=== PATIENT | male | born 1955 | race Caucasian/White ===

== ENCOUNTER 2016-10-21 07:52 | Day surgery (SDC) | payer OTHER ==
[2016-10-21 08:33] VITALS: TEMP 97.3; BMI 33.4
[2016-10-21] MEDS ORDERED: LIDOCAINE HCL/PF 1% SDV 5ML VIAL ONE (10:12)
[2016-10-21] MEDS ORDERED: PROPOFOL 20 ML ONE ×2 (10:12)
[2016-10-21 12:06] VITALS: BP 120/70; PULSE 65
--- NOTE | 2016-10-22 13:39 | PATH ---
Surgical Pathology Report Patient Name: MIKIE ANDREWS [facility]. Rec. #: [id number] /Age/Gender: 1955 (Age: 60) / M Account: [id number] Location: [facility] Taken: 10/21/2016 Received: 10/21/2016 Reported: 10/22/2016 Physicians: Mikie Hernandez M.D. Specimen(s) Received A: BX STOMACH B: BX MID ANTRUM C: BX PROXIMAL ANTRUM D: BX BODY Clinical History Epigastric pain, early satiety Erosive gastritis Final Diagnosis A. STOMACH, BIOPSY: GASTRIC ANTRAL MUCOSA WITH MODERATE CHRONIC GASTRITIS WITH FOCAL INTESTINAL METAPLASIA AND REACTIVE GASTROPATHY WITH FOCAL SURFACE EROSION. NEGATIVE FOR DYSPLASIA. IMMUNOSTAIN FOR H. PYLORI IS NEGATIVE FOR ORGANISMS. B. STOMACH, MID ANTRUM, BIOPSY: GASTRIC ANTRAL MUCOSA WITH FOCALLY ACTIVE MODERATE CHRONIC GASTRITIS WITH FOCAL INTESTINAL METAPLASIA AND REACTIVE GASTROPATHY WITH FOCAL SURFACE EROSION. NEGATIVE FOR DYSPLASIA. IMMUNOSTAIN FOR H. PYLORI IS NEGATIVE FOR ORGANISMS. C. STOMACH, PROXIMAL ANTRUM, BIOPSY: GASTRIC OXYNTIC MUCOSA WITH MODERATE CHRONIC GASTRITIS WITH FOCAL SURFACE EROSION. IMMUNOSTAIN FOR H. PYLORI IS NEGATIVE FOR ORGANISMS. D. STOMACH, BODY, BIOPSY: GASTRIC OXYNTIC MUCOSA WITH MODERATE CHRONIC GASTRITIS. IMMUNOSTAIN FOR H. PYLORI IS NEGATIVE FOR ORGANISMS. Electronically Signed Lopez Franco M.D. Gross Description A. Received in formalin, labeled "biopsy stomach" are 2 bernal, irregular portions of soft tissue averaging 0.3 cm in greatest dimension. The specimens are submitted in toto in one cassette. B. Received in formalin, labeled "biopsy mid antrum" is a bernal, irregular portion of soft tissue measuring 0.3 cm in greatest dimension. The specimen is submitted in toto in one cassette. C. Received in formalin, labeled "biopsy proximal antrum" are 2 bernal, irregular portions of soft tissue measuring 0.3 and 0.5 cm in greatest dimension. The specimens are submitted in toto in one cassette. D. Received in formalin, labeled "biopsy body" is a bernal, irregular portion of soft tissue measuring 0.2 cm in greatest dimension. The specimen is submitted in toto in one cassette. 10/21/201610/21/2016
== END 2016-10-21 11:50 | disposition home or self-care (01) ==
LOC: JASU-ENDO 07:52
PROVIDERS: ATTEND Internal Medicine Gastroenterology
PROC: 0DB68ZX Excision of Stomach, Via Natural or Artificial Opening Endoscopic, Diagnostic (ICD-10-PCS; principal; 2016-10-21 09:30)
DX: K29.50 Unspecified chronic gastritis without bleeding (principal); K31.9 Disease of stomach and duodenum, unspecified; K25.9 Gastric ulcer, unspecified as acute or chronic, without hemorrhage or perforation
CPT/HCPCS: 88305-TC; 88342-TC

== ENCOUNTER 2017-02-24 06:20 | Day surgery (SDC) | payer OTHER ==
[2017-02-20 16:59] VITALS: BMI 33.0
[2017-02-24] MEDS ORDERED: BUPIVACAINE HCL/PF 0.5% (5MG/ML) 10 ML VIAL ONE (07:29)
[2017-02-24] MEDS ORDERED: PROPOFOL 20 ML ONE ×2 (08:00→08:33)
[2017-02-24] MEDS ORDERED: ROCURONIUM BROMIDE 50 MG/5 ML VIAL ONE (08:00)
[2017-02-24] MEDS ORDERED: MIDAZOLAM HCL 2 MG/2 ML SINGLE DOSE VIAL ONE (08:01)
[2017-02-24] MEDS ORDERED: SUCCINYLCHOLINE CHLORIDE 200 MG/10 ML VIAL ONE (08:03)
[2017-02-24] MEDS ORDERED: DESFLURANE GAS 240 ML BOTTLE IH ONE (08:08)
--- NOTE | 2017-02-24 08:16 | HP ---
History & Physical Update - History History: No Change - Physical Physical: No Change - Assessment Assessment: No Change - Plan Plan: No Change Currently as noted:: Robotic right inguinal hernia repair with mesh possible open
[2017-02-24] MEDS ORDERED: PHENYLEPHRINE HCL 10 MG/1 ML SINGLE DOSE VIAL ONE (08:26)
[2017-02-24] MEDS ORDERED: ceFAZolin SODIUM 1 GM VIAL ONE (08:41)
[2017-02-24] MEDS ORDERED: ceFAZolin SODIUM 1 GM VIAL IVPB ONE (08:45)
[2017-02-24] MEDS ORDERED: DEXAMETHASONE SOD PHOSPHATE 4 MG/1 ML VIAL ONE (09:01)
[2017-02-24] MEDS ORDERED: BUPIVACAINE HCL/PF 0.5% (5MG/ML) 10 ML VIAL IJ ONE (10:00)
--- NOTE | 2017-02-24 10:03 | OP ---
Operative Note - Note: Operative Date: 02/24/17 Pre-Operative Diagnosis: Right inguinal hernia Operation: Robotic right inguinal hernia repair with mesh Post-Operative Diagnosis: Same as Pre-op Surgeon: Ariel Walters Kiln Car Repairer: Luz Saavedra Anesthesia: General Specimens Removed: None Estimated Blood Loss (mls): 5 Operative Report Dictated: Yes
[2017-02-24] MEDS ORDERED: ALBUTEROL SO4 6.7 GM HFA INHALER IH ONE (10:06)
[2017-02-24] MEDS ORDERED: ALBUTEROL SO4 0.083% IH SOL 2.5 MG/3 ML VIAL.NEB. NEB ONE (10:36)
[2017-02-24] MEDS ORDERED: oxyCODONE HCL 5 MG TABLET PO PRN ×2 (10:36→15:36)
[2017-02-24] MEDS ORDERED: ONDANSETRON 4 MG/2 ML VIAL IVPUSH PRN (10:36)
[2017-02-24] MEDS ORDERED: ACETAMINOPHEN 325 MG TABLET (FP) PO PRN ×3 (10:36→16:46)
--- NOTE | 2017-02-24 13:17 | SPEC ---
DATE OF OPERATION: 02/24/2017 SURGEON: Ariel Walters MD CEMENT FINISHING SUPERVISOR: LUCI Cardoso PREOPERATIVE DIAGNOSIS: Right inguinal hernia. POSTOPERATIVE DIAGNOSIS: Right inguinal hernia. PROCEDURE: Robotic repair of right inguinal hernia with mesh. SPECIMEN: None. ESTIMATED BLOOD LOSS: 5 mL. DRAINS: None. ANESTHESIA: GET. REASON FOR PROCEDURE: This is a 61-year-old gentleman who presents to the office for right groin pain. He was found to have evidence of a right inguinal hernia on exam. Because of this, he was consented for a robotic right inguinal hernia repair with mesh, possible open. RISKS AND BENEFITS: The risks and benefits of Robotic, possible open right inguinal hernia repair, possible bilateral inguinal hernia repair, with mesh were explained. These included bleeding, infection, recurrence of hernia, GA, DVT, PE, new hernia, mesh infection, injury to surrounding structures including the colon, bowel, bladder, ureter, spermatic cord, spermatic vessels, vas deferens, vessel injury, nerve injury, testicular injury including atrophy and possible loss of the testicle, and as some of the possible complications. The patient understood and signed informed consent. DESCRIPTION OF PROCEDURE: The patient was placed supine on the operating room table. Patient underwent general endotracheal intubation. A Leavitt catheter was inserted by the nursing staff. The arms were tucked at the side, and he was placed on a beanbag device. The abdomen was prepped and draped in the usual sterile fashion. A time-out was performed. A periumbilical incision was made, and entrance into the abdominal cavity was obtained using an 8-mm robotic optical trocar under direct visualization with a laparoscope. Pneumoperitoneum was established. Subsequently, two additional 8-mm trocars were placed, one approximately 6-7 cm to the left of the umbilicus and one 6-7 cm to the right of the umbilicus. The patient was placed in steep Trendelenburg, [id number] position. The robot was brought over the field and docked. Dissection was performed at the console. The peritoneum was opened using robotic EndoShears. The preperitoneal space over the right inguinal region was dissected. The epigastric vessels were identified. These were dissected towards the anterior abdominal wall. Dissection in the preperitoneal space was continued from the medial umbilical ligament towards the anterior-superior iliac spine. Medially, dissection was performed until Jose Miguel's ligament and the pubis were identified. Lateral to this, the spermatic cord structures including the vas deferens were identified. The contents of the hernia sac were identified and dissected down to the retroperitoneum. At this point, hemostasis was identified. Again, all of the hernia contents were noted to be completely dissected and noted to have no retraction back to its original position. A Symbotex mesh was then chosen, irrigated, and inserted into the abdominal cavity to cover the entire myopectineal orifice. This mesh was secured medially at the pubis and superolaterally to the abdominal wall with sutures. The mesh was noted to be in good position. The hernia was again noted to be fully reduced and without any tension. At this point, the peritoneal flap was closed using a 2-0 V-Loc suture. Again, hemostasis was identified. All needles were removed from the field, and the count was confirmed to be correct. The robotic instruments were removed. The robot was undocked and removed from the operative field. The patient was placed supine. Pneumoperitoneum was desufflated. All trocars were removed. All incision sites were irrigated. Marcaine was injected into all incision sites. Hemostasis was noted at all incision sites. All skin incisions were closed using 4-0 Biosyn. Sterile dressings were applied. The Leavitt catheter was removed. The patient tolerated the procedure well and was transferred to the recovery room in stable condition. Yfn [id number]
--- NOTE | 2017-02-24 14:39 | CON.PULM ---
Consult Consult Specialty:: PULM/CCM Referred by:: BRIAN Reason for Consultation:: SOB - History of Present Illness Chief Complaint: SOB History of Present Illness: 57 M, longstanding HTN, dilated ascending thoracic aorta (4.6cm), diastolic dysfunction, and previous smoker with likely COPD. Admitted for a robotic right inguinal hernia repair with mesh. Called for SOB and hypoxemia in the PACU. Patient had the procedure under GA with only 1 liter of IVF. In the PACU the patient is AAO x 3. He is mildly tachypneic at rest but in NAD on 4 L NC O2. CXR : increased bilateral interstitial markings. No effusions. Patient does have some cough with copious production. The patient does have a clinical history that may indicate OSAS. - History Source History Provided By: Patient Limitations to Obtaining History: No Limitations - Past Medical History Cardio/Vascular: Yes: HTN, Other (Diastolic dysfunction) Pulmonary: Yes: COPD, Sleep Apnea. No: O2 Dependent, Pulmonary Embolus Hepatobiliary: Yes: Other (Cholecystectomy) Musculoskeletal: Yes: Other (right hip arthritis) - Past Surgical History Past Surgical History: Yes: Cholecystectomy - Alcohol/Substance Use Hx Alcohol Use: No History of Substance Use: reports: None - Smoking History Smoking history: Never smoked Have you smoked in the past 12 months: No Aproximately how many cigarettes per day: 0 - Social History Usual Living Arrangement: Alone History of Recent Travel: No Home Medications - Allergies Allergies/Adverse Reactions: Allergies Allergy/AdvReac Type Severity Reaction Status Date / Time No Known Allergies Allergy Verified 02/24/17 06:52 - Home Medications Home Medications: Ambulatory Orders Zolpidem Tartrate [Ambien] 10 mg PO HS 06/22/13 Aspirin [Aspir 81] 81 mg PO DAILY 08/17/15 Amlodipine/Valsartan/Hcthiazid [Exforge Hct 10-320-25 mg Tab] 1 each PO DAILY Fenofibrate 150 mg PO DAILY 02/20/17 Oxybutynin Chloride [Ditropan Xl] 15 mg PO DAILY 02/20/17 Pantoprazole Sodium 40 mg PO DAILY 02/20/17 Baclofen 10 mg PO DAILY 02/24/17 Docusate Sodium [Colace -] 100 mg PO TID #90 capsule 02/24/17 Oxycodone HCl/Acetaminophen [Endocet 5-325 Tablet] 1 each PO QID 02/24/17 Oxycodone HCl/Acetaminophen [Percocet 5-325 mg Tablet] 1 - 2 tab PO Q6H #28 tab MDD 4 02/24/17 Review of Systems - Review of Systems Constitutional: denies: Chills, Fever, Night Sweats, Unintentional Wgt. Loss, Weakness Eyes: reports: No Symptoms HENT: reports: No Symptoms Neck: reports: No Symptoms Cardiovascular: reports: No Symptoms. denies: Chest Pain, Palpitations Respiratory: reports: Cough, Snoring. denies: Hemoptysis, SOB, SOB on Exertion , Wheezing Gastrointestinal: reports: Abdominal Pain Genitourinary: reports: No Symptoms Musculoskeletal: reports: No Symptoms Integumentary: reports: No Symptoms Neurological: reports: No Symptoms Endocrine: reports: No Symptoms Hematology/Lymphatic: reports: No Symptoms Psychiatric: reports: No Symptoms Physical Exam Vital Sings: Vital Signs Temperature 97.8 F 02/24/17 10:18 Pulse Rate 83 02/24/17 12:45 Respiratory Rate 12 02/24/17 12:45 Blood Pressure 133/80 02/24/17 12:45 O2 Sat by Pulse Oximetry (%) 90 L 02/24/17 12:45 Constitutional: Yes: No Distress, Obese Eyes: Yes: Conjunctiva Clear, EOM Intact HENT: Yes: Atraumatic, Normocephalic Neck: Yes: Supple, Trachea Midline Cardiovascular: Yes: Regular Rate and Rhythm Respiratory: Yes: Cough, Diminished, On Nasal O2, Rhonchi, Wheezes. No: Accessory Muscle Use, Stridor, Tachypnea ...Inspection: Yes: WNL ...Clubbing: No Gastrointestinal: Yes: Normal Bowel Sounds, Soft, Abdomen, Obese Renal/: Yes: WNL Musculoskeletal: Yes: WNL Extremities: Yes: WNL Edema: No Peripheral Pulses WNL: Yes Integumentary: Yes: WNL Neurological: Yes: WNL, Alert, Oriented ...Motor Strength: WNL Psychiatric: Yes: WNL, Alert, Oriented Imaging - Results Chest X-ray: Report Reviewed, Image Reviewed Problem List - Problems (1) Right inguinal hernia Code(s): K40.90 - UNIL INGUINAL HERNIA, W/O OBST OR GANGR, NOT SPCF RECUR (2) Knee pain, left Code(s): M25.562 - PAIN IN LEFT KNEE (3) Acute exacerbation of chronic obstructive pulmonary disease Code(s): J44.1 - CHRONIC OBSTRUCTIVE PULMONARY DISEASE W (ACUTE) EXACERBATION Assessment/Plan PLAN: Medrol BD TX O2 as needed to maintain saturation VTE prophylaxis No indication for ABX Would hold on diuresis Repeat CXR in the AM Will need formal OSAS workup an an outpatient Will follow Thank you. Dr Herrera
--- NOTE | 2017-02-24 14:42 | SURG ---
Surgery Director Media Note Director Media: Luz Saavedra PA-C Date of Service: 02/24/17 Diagnosis: Right inguinal hernia Procedure: Robotic right inguinal hernia repair with mesh I was present for the entirety of the operative procedure. For further detail, please refer to operative report. Visit type - Case Type Case Type: Scheduled Admission - Emergency Emergency Visit: No - New patient This patient is new to me today: Yes Date on this admission: 02/24/17 - Critical Care Critical Care patient: No
[2017-02-24] MEDS ORDERED: ALBUTEROL SO4 0.083% IH SOL 2.5 MG/3 ML VIAL.NEB. NEB PRN (14:53)
[2017-02-24] MEDS ORDERED: methylPREDNISolone NA SUCC 40 MG/1 ML VIAL ONE (15:38)
[2017-02-24] MEDS: methylPREDNISolone NA SUCC 40 MG/1 ML VIAL IVPB SCH ×3 (15:40→17:11)
[2017-02-24] MEDS ORDERED: ONDANSETRON 4 MG/2 ML VIAL IVPB PRN (16:51)
[2017-02-24] MEDS: HEPARIN NA (PORCINE) 5,000 UNITS/ML 1ML VIAL SQ SCH (17:10)
[2017-02-24] MEDS: oxyCODONE HCL 5 MG TABLET PO PRN ×2 (17:14→21:37)
[2017-02-24] MEDS: ALBUTEROL SO4 2.5/IPRATROPIUM 0.5 INH SOL 3 ML VIAL.NEB. NEB SCH (18:20)
[2017-02-24] MEDS ORDERED: ZOLPIDEM TARTRATE 5 MG TABLET PO ONE (22:30)
[2017-02-25] MEDS: methylPREDNISolone NA SUCC 40 MG/1 ML VIAL IVPB SCH ×2 (01:07→09:08)
[2017-02-25] MEDS: HEPARIN NA (PORCINE) 5,000 UNITS/ML 1ML VIAL SQ SCH ×2 (01:07→09:08)
[2017-02-25] MEDS: ALBUTEROL SO4 2.5/IPRATROPIUM 0.5 INH SOL 3 ML VIAL.NEB. NEB SCH ×3 (06:45→11:39)
--- NOTE | 2017-02-25 09:06 | PN ---
Progress Note (short form) - Note Progress Note: Patient seen and examined. Patient states he is feeling better and has no pain or complaints. He is breathing well without use of oxygen. He has been using the incentive spirometer. He denies SOB, cough, lightheadedness or dizziness. He is tolerating his diet and urinating without issue. Denies fever, chills, nausea, vomiting. Last Vital Signs Temp Pulse Resp BP Pulse Ox 97.8 F 87 20 119/61 98 02/25/17 08:20 02/25/17 08:20 02/25/17 08:20 02/25/17 08:20 02/24/17 21:00 Exam: Gen: NAD Cardio: RRR Resp: CTA, no accessory muscle use Abd: soft, nontender, incisions c/d/i CXR- improving left basilar consolidation A/P POD# 1 s/p Robotic right inguinal hernia repair with mesh admitted after SOB and hypoxemia in the PACU, now improved Appreciate pulm recs- Follow-up for outpt OSAS workup Continue regular diet Pain control- Rx sent to pharmacy by Dr. Walters OOB Plan to DC home today with instructions to follow-up with Dr. Walters in two weeks Problem List - Problems (1) Right inguinal hernia Code(s): K40.90 - UNIL INGUINAL HERNIA, W/O OBST OR GANGR, NOT SPCF RECUR (2) Acute exacerbation of chronic obstructive pulmonary disease Code(s): J44.1 - CHRONIC OBSTRUCTIVE PULMONARY DISEASE W (ACUTE) EXACERBATION
[2017-02-25] MEDS ORDERED: PANTOPRAZOLE 40 MG TABLET (FP) PO SCH (10:00)
[2017-02-25] MEDS ORDERED: [UNRECOGNIZED DRUG - OTHER] PO SCH (10:00)
[2017-02-25] MEDS ORDERED: AMLODIPINE PO SCH (10:00)
[2017-02-25] MEDS ORDERED: BACLOFEN 10 MG TABLET (FP) PO SCH (10:00)
[2017-02-25] MEDS ORDERED: VALSARTAN 160 MG TABLET (UD) PO SCH (10:00)
[2017-02-25] MEDS ORDERED: ASPIRIN COATED 81 MG TABLET.EC PO SCH (10:00)
[2017-02-25] MEDS ORDERED: HCTHIAZID PO SCH (10:00)
[2017-02-25] MEDS ORDERED: OXYBUTYNIN CHLORIDE 15 MG PO SCH (10:00)
[2017-02-25] MEDS ORDERED: HYDROCHLOROTHIAZIDE 25 MG TABLET (FP) PO SCH (10:00)
[2017-02-25] MEDS ORDERED: FENOFIBRIC ACID 135 MG CAP PO SCH (10:00)
[2017-02-25] MEDS ORDERED: amLODIPine BESYLATE 10 MG TABLET (FP) PO SCH (10:00)
[2017-02-25] MEDS ORDERED: VALSARTAN PO SCH (10:00)
--- NOTE | 2017-02-25 12:57 | PN ---
Progress Note (short form) - Note Progress Note: PULMONARY SPO2 R/A 92% VSS/AFEBRILE WANTS TO GO HOME NOT SOB ANICTERIC CHEST CLEAR S1S2 POST-OP HERNIA REPAIR NO EDEMA IMAGING/NOTES/MEDS REVIEWED (1) Right inguinal hernia Code(s): K40.90 - UNIL INGUINAL HERNIA, W/O OBST OR GANGR, NOT SPCF RECUR (2) Knee pain, left Code(s): M25.562 - PAIN IN LEFT KNEE (3) Acute exacerbation of chronic obstructive pulmonary disease Code(s): J44.1 - CHRONIC OBSTRUCTIVE PULMONARY DISEASE W (ACUTE) EXACERBATION PLAN: D/C medrol BD TX prn VTE prophylaxis Will need formal OSAS workup an an outpatient no objection to discharge Candice WATSON MD
[2017-02-25 13:41] VITALS: BP 136/71; PULSE 103; TEMP 98.4
== END 2017-02-25 14:13 | disposition home or self-care (01) ==
LOC: JASUSAT 06:20 → JASU-SURG 06:20 → J6S 16:18 → JASUSAT 02-25 14:13
PROVIDERS: ATTEND Surgery
PROC: 8E0W4CZ Robotic Assisted Procedure of Trunk Region, Percutaneous Endoscopic Approach (ICD-10-PCS; 2017-02-24)
PROC: 0YU54JZ Supplement Right Inguinal Region with Synthetic Substitute, Percutaneous Endoscopic Approach (ICD-10-PCS; principal; 2017-02-24 08:00)
DX: K40.90 Unilateral inguinal hernia, without obstruction or gangrene, not specified as recurrent (principal)
CPT/HCPCS: 49650; S2900; 71010-TC; 94010; 94640; 94760; J0475; J1644

== ENCOUNTER 2017-05-26 07:17 | Day surgery (SDC) | payer OTHER ==
[2017-05-26 09:21] VITALS: BMI 33.7
[2017-05-26] MEDS ORDERED: LIDOCAINE HCL/PF 2% SDV 5ML VIAL ONE (11:00)
[2017-05-26] MEDS ORDERED: PROPOFOL 20 ML ONE ×5 (11:00)
[2017-05-26 12:00] VITALS: TEMP 97.5
[2017-05-26 16:05] VITALS: BP 134/70; PULSE 71
== END 2017-05-26 13:30 | disposition home or self-care (01) ==
LOC: JASU-ENDO 07:17
PROVIDERS: ATTEND Internal Medicine Gastroenterology
PROC: 0DJD8ZZ Inspection of Lower Intestinal Tract, Via Natural or Artificial Opening Endoscopic (ICD-10-PCS; principal; 2017-05-26 10:00)
DX: Z86.010 Personal history of colon polyps (principal); K57.30 Diverticulosis of large intestine without perforation or abscess without bleeding

== ENCOUNTER 2017-05-26 15:46 | Inpatient (IN) | payer OTHER ==
[2017-05-26] MEDS ORDERED: SODIUM CHLORIDE 1,000 ML IV STA ×2 (16:29→18:18)
[2017-05-26 17:08] LABS: VENOUS PH 7.38 (7.32-7.42)
[2017-05-26 17:09] LABS: VENOUS BLOOD GAS HCO3 20.7 meq/L (19-25)
--- NOTE | 2017-05-26 17:09 | PDOC ---
History of Present Illness - General Chief Complaint: Shortness of Breath Stated Complaint: SHORTNESS OF BREATH Time Seen by Provider: 05/26/17 16:21 History Source: Patient Exam Limitations: No Limitations - History of Present Illness Initial Comments: 05/26/17 16:58 61-year-old male presents the ED with sudden onset worsening shortness of breath chills, and generalized fatigue. Patient states had a colonoscopy today at 12:30 which one uneventful performed by Dr. Hernandez. Patient states while her symptoms began about an hour after arriving home without complaints of cough, headache, dizziness, abdominal pain, nausea, or rectal bleeding. Patient denies recent illness, recent travel, or recent sick contacts. Timing/Duration: constant Severity: moderate Associated Symptoms: reports: fever/chills, shortness of breath, weakness Past History - Travel Traveled outside of the country in the last 30 days: No Close contact w/someone who was outside of country & ill: No - Past Medical History Allergies/Adverse Reactions: Allergies Allergy/AdvReac Type Severity Reaction Status Date / Time No Known Allergies Allergy Verified 05/26/17 16:15 Home Medications: Ambulatory Orders Zolpidem Tartrate [Ambien] 10 mg PO HS 06/22/13 Aspirin [Aspir 81] 81 mg PO DAILY 08/17/15 Amlodipine/Valsartan/Hcthiazid [Exforge Hct 10-320-25 mg Tab] 1 each PO DAILY Oxybutynin Chloride [Ditropan Xl] 5 mg PO DAILY 02/20/17 Pantoprazole Sodium 40 mg PO DAILY 02/20/17 Baclofen 10 mg PO DAILY 02/24/17 Oxycodone HCl/Acetaminophen [Endocet 5-325 Tablet] 1 tab PO PRN PRN 05/25/17 Anemia: No Asthma: No Cancer: No Cardiac Disorders: Yes (ANEURYSM-SX 2014) CVA: No COPD: No CHF: No Dementia: No Diabetes: No GI Disorders: Yes (GERD,COLONIC POLYP,) Disorders: No HTN: Yes Hypercholesterolemia: No Liver Disease: No Seizures: No Thyroid Disease: No - Surgical History Abdominal Surgery: No Appendectomy: Yes Cardiac Surgery: Yes (AORTIC ANEURSYM REPAIRED) Cholecystectomy: Yes Lung Surgery: No Neurologic Surgery: No Orthopedic Surgery: Yes (LEFT KNEE SURGERY) - Suicide/Smoking/Psychosocial Hx Smoking Status: Yes Smoking History: Never smoked Have you smoked in the past 12 months: No Number of Cigarettes Smoked Daily: 0 Information on smoking cessation initiated: No 'Breaking Loose' booklet given: 06/22/13 Hx Alcohol Use: No Drug/Substance Use Hx: No Substance Use Type: None Hx Substance Use Treatment: No Patient Lives Alone: No Lives with/in: spouse/SO Review of Systems - Review of Systems Able to Perform ROS?: No Constitutional: Yes: Fever, Weakness HEENTM: Yes: Symptoms Reported Respiratory: Yes: Shortness of Breath Cardiac (ROS): No: Symptoms Reported ABD/GI: No: Symptoms Reported : No: Symptoms Reported Musculoskeletal: No: Symptoms Reported Integumentary: No: Symptoms Reported Neurological: Yes: Weakness Endocrine: No: Symptoms Reported Hematologic/Lymphatic: No: Symptoms Reported *Physical Exam - Vital Signs Last Vital Signs Temp Pulse Resp BP Pulse Ox 102.4 F H 103 H 26 H 129/73 94 L 05/26/17 15:46 05/26/17 15:46 05/26/17 15:46 05/26/17 15:46 05/26/17 15:46 - Physical Exam General Appearance: Yes: Nourished, Appropriately Dressed. No: Apparent Distress HEENT: negative: Pale Conjunctivae Neck: positive: Supple Respiratory/Chest: positive: Lungs Clear, Normal Breath Sounds. negative: Respiratory Distress, Accessory Muscle Use Cardiovascular: positive: Regular Rhythm, Tachycardia. negative: Murmur Gastrointestinal/Abdominal: positive: Normal Bowel Sounds, Soft. negative: Tenderness Extremity: positive: Normal Capillary Refill Integumentary: positive: Normal Color, Warm, Moist Neurologic: positive: Motor Strength 5/5 (ambulatory) Heart Score/ECG Review - ECG Intrepretation Rhythm: Regular Rhythm (rate 103. Left axis deviation. Sinus tachycardia.) ED Treatment Course - LABORATORY CBC & Chemistry Diagram: 05/26/17 16:50 05/26/17 16:50 - RADIOLOGY Radiology Studies Ordered: Category Date Time Status CHEST X-RAY PORTABLE* [RAD] Stat Radiology 05/26/17 16:29 Ordered KUB (KID UR & BLAD) [RAD] Stat Radiology 05/26/17 16:30 Ordered Medical Decision Making - Medical Decision Making 05/26/17 17:17 Patient here with complaints of fever, chills, weakness, and shortness of breath after receiving that has worsened over the past few hours. Patient status post colonoscopy earlier today completing it at 12:30 PM. Patient exam had no abdominal tenderness but was found to be tachycardic and satting at 94%. Patient ordered for septic workup including a KUB to rule out perforation. 05/26/17 17:51 Laboratory Tests 05/26/17 05/26/17 05/26/17 16:41 16:50 16:50 WBC 14.7 H D Hgb 14.8 Hct 43.5 Neutrophils % 88.8 H PT with INR 12.20 H Sodium 139 Potassium 4.4 D Chloride 106 Carbon Dioxide 24 Anion Gap 9 BUN 39 H D Creatinine 1.9 H D Creat Clearance w eGFR 36.34 Random Glucose 110 H D Calcium 9.3 Total Bilirubin 1.0 AST 26 D ALT 30 D Creatine Kinase 140 Troponin I < 0.02 05/26/17 18:19 Laboratory Tests 05/26/17 16:50 Lactic Acid 2.3 H* Chest x-ray shows early infiltrates to the left low. Patient ordered for Levaquin for community-acquired pneumonia. Awaiting callback from Dr. Hazel for admission 05/26/17 18:39 KUB shows no signs of perforation or free air. 05/26/17 18:39 Selected Entries 05/26/17 17:33 Pulse Rate [ 102 H Apical] Respiratory 18 Rate Blood Pressure 118/72 [Right Arm] O2 Sat by Pulse 98 Oximetry (%) *DC/Admit/Observation/Transfer Diagnosis at time of Disposition: Left lower lobe pneumonia Qualifiers: Pneumonia type: due to unspecified organism Qualified Code(s): J18.1 - Lobar pneumonia, unspecified organism Sepsis Qualifiers: Sepsis type: sepsis due to unspecified organism Qualified Code(s): A41.9 - Sepsis, unspecified organism - Discharge Dispostion Admit: Yes - Referrals Referrals: Shadi Hazel MD [Primary Care Provider] -
[2017-05-26 17:10] LABS: BASOPHIL 0.3 % (0-2.0); EOSINOPHIL 0.1 % (0-4.5); MCH 30.5 pg (25.7-33.7); MEAN PLT VOLUME 9.3 fl (7.5-11.1); NEUTROPHILS 88.8 % (42.8-82.8); PLATELET COUNT 250 K/MM3 (134-434); WHITE BLOOD COUNT 14.7 K/mm3 (4.0-10.0)
[2017-05-26 17:25] LABS: INR 1.11 (0.82-1.09); PROTHROMBIN TIME (PATIENT) 12.2 SEC (9.98-11.88)
[2017-05-26 17:28] LABS: ACTIVATED PTT 28.4 SECONDS (26.9-34.4)
[2017-05-26 17:35] LABS: ALBUMIN 4.4 g/dl (3.4-5.0); ANION GAP 9 (8-16); CALCIUM 9.3 mg/dL (8.5-10.1); CO2 24 mmol/L (21-32); CREATININE 1.9 mg/dL (0.7-1.3); GLUCOSE,RANDOM 110 mg/dL (74-106); SGPT/ALT 30 U/L (12-78); TOT PROT 7.6 g/dl (6.4-8.2)
[2017-05-26 17:37] LABS: ALK PHOS 93 U/L (45-117); CPK 140 IU/L (39-308); TROPONIN I < 0.02 ng/ml (0.00-0.05)
[2017-05-26 17:38] LABS: SGOT/AST 26 U/L (15-37)
[2017-05-26] MEDS ORDERED: LEVOFLOXACIN 500 MG IVPB 100 ML IVPB ONE (18:14)
[2017-05-26] MEDS ORDERED: ACETAMINOPHEN 325 MG TABLET (FP) PO PRN ×2 (20:30→20:42)
[2017-05-26] MEDS ORDERED: ZOLPIDEM TARTRATE 5 MG TABLET PO PRN (20:30)
[2017-05-26] MEDS ORDERED: ALBUTEROL SO4 2.5/IPRATROPIUM 0.5 INH SOL 3 ML VIAL.NEB. NEB PRN (20:30)
[2017-05-26 20:37] LABS: URINE APPEARANCE CLEAR; URINE BILIRUBIN NEGATIVE (NEGATIVE); URINE BLOOD NEGATIVE (NEGATIVE); URINE COLOR LTYELLOW; URINE GLUCOSE (UA) NEGATIVE (NEGATIVE); URINE KETONE NEGATIVE (NEGATIVE); URINE LEUK ESTERASE NEGATIVE (NEGATIVE); URINE NITRITE NEGATIVE (NEGATIVE); URINE PROTEIN NEGATIVE (NEGATIVE); URINE UROBILINOGEN NEGATIVE mg/dL (0.2-1.0)
--- NOTE | 2017-05-26 20:41 | HP ---
Admitting History and Physical - Primary Care Physician PCP: Shadi Hazel - Admission Chief Complaint: RESP DISTRESS History of Present Illness: 61 Y/O MALE S/P COLONOSCOPY BECAME SOB BROUGHT IN BY AMBULANCE TO HOSPITAL FOUND TO HAVE ACUTE PNEUMONIA. HISTORY HTN, LIPIDEMIA, BLADDER INCONTINENCE History Source: Patient Limitations to Obtaining History: No Limitations - Past Medical History Cardiovascular: Yes: HTN, Other (Diastolic dysfunction) Pulmonary: Yes: COPD, Sleep Apnea. No: O2 Dependent, Pulmonary Embolus Hepatobiliary: Yes: Other (Cholecystectomy) Musculoskeletal: Yes: Other (right hip arthritis) - Past Surgical History Past Surgical History: Yes: Cholecystectomy - Smoking History Smoking history: Never smoked Have you smoked in the past 12 months: No Aproximately how many cigarettes per day: 0 - Alcohol/Substance Use Hx Alcohol Use: No History of Substance Use: reports: None - Social History History of Recent Travel: No Home Medications - Allergies Allergies/Adverse Reactions: Allergies Allergy/AdvReac Type Severity Reaction Status Date / Time No Known Allergies Allergy Verified 05/26/17 16:15 - Home Medications Home Medications: Ambulatory Orders Zolpidem Tartrate [Ambien] 10 mg PO HS 06/22/13 Aspirin [Aspir 81] 81 mg PO DAILY 08/17/15 Amlodipine/Valsartan/Hcthiazid [Exforge Hct 10-320-25 mg Tab] 1 each PO DAILY Oxybutynin Chloride [Ditropan Xl] 5 mg PO DAILY 02/20/17 Pantoprazole Sodium 40 mg PO DAILY 02/20/17 Oxycodone HCl/Acetaminophen [Endocet 5-325 Tablet] 1 tab PO PRN PRN 05/25/17 Review of Systems - Review of Systems Constitutional: reports: Weakness Eyes: reports: No Symptoms HENT: reports: No Symptoms Neck: reports: No Symptoms Cardiovascular: reports: Shortness of Breath Respiratory: reports: Cough, SOB Gastrointestinal: reports: No Symptoms Genitourinary: reports: Incontinence Musculoskeletal: reports: Other Integumentary: reports: No Symptoms Neurological: reports: Pre-Existing Deficit Endocrine: reports: No Symptoms Hematology/Lymphatic: reports: No Symptoms Psychiatric: reports: No Symptoms Physical Examination Vital Signs: Vital Signs Temperature 99.7 F H 05/26/17 20:29 Pulse Rate 90 05/26/17 20:29 Respiratory Rate 18 05/26/17 20:29 Blood Pressure 111/68 05/26/17 20:29 O2 Sat by Pulse Oximetry (%) 92 L 05/26/17 20:29 Constitutional: Yes: Mild Distress Eyes: Yes: WNL HENT: Yes: WNL Neck: Yes: WNL Cardiovascular: Yes: WNL Respiratory: Yes: On Nasal O2, Rhonchi, SOB Gastrointestinal: Yes: WNL Renal/: Yes: WNL Musculoskeletal: Yes: Muscle Weakness Extremities: Yes: WNL Edema: No Peripheral Pulses WNL: Yes Integumentary: Yes: WNL Wound/Incision: Yes: Clean/Dry Neurological: Yes: Pre-Existing Deficit ...Motor Strength: LLE, RLE Psychiatric: Yes: Other Imaging - Results Chest X-ray: Report Reviewed Other: Report Reviewed Problem List - Problems (1) Left lower lobe pneumonia Code(s): J18.1 - LOBAR PNEUMONIA, UNSPECIFIED ORGANISM Qualifiers: Pneumonia type: due to unspecified organism Qualified Code(s): J18.1 - Lobar pneumonia, unspecified organism (2) Sepsis Code(s): A41.9 - SEPSIS, UNSPECIFIED ORGANISM Qualifiers: Sepsis type: sepsis due to unspecified organism Qualified Code(s): A41.9 - Sepsis, unspecified organism (3) Acute renal failure Code(s): N17.9 - ACUTE KIDNEY FAILURE, UNSPECIFIED Qualifiers: Acute renal failure type: unspecified Qualified Code(s): N17.9 - Acute kidney failure, unspecified Assessment/Plan IV ABX NEBS PAIN CONTROL DVT PROPHYLAXIS OOB TO CHAIR PULM EVAL RENAL FAILURE IVF RENAL SONO HTN AND SOB CHECK ECHO AND CT CHEST PULM EVAL
[2017-05-26] MEDS ORDERED: oxyCODONE HCL 5 MG TABLET PO PRN (20:42)
[2017-05-26] MEDS ORDERED: HEPARIN NA (PORCINE) 5,000 UNITS/ML 1ML VIAL ONE (22:47)
[2017-05-26] MEDS ORDERED: ATORVASTATIN CA 40 MG TABLET (FP) ONE (22:47)
[2017-05-26] MEDS: ATORVASTATIN CA 20 MG TABLET (FP) PO SCH (22:53)
[2017-05-26] MEDS: HEPARIN NA (PORCINE) 5,000 UNITS/ML 1ML VIAL SQ SCH (22:53)
[2017-05-27 06:31] LABS: MCH 30.9 pg (25.7-33.7); MCHC 34.4 g/dl (32.0-35.9); MEAN CELL VOLUME 89.7 fl (80-96); MEAN PLT VOLUME 8.7 fl (7.5-11.1); PLATELET COUNT 212 K/MM3 (134-434); RDW 13.8 % (11.9-15.9); WHITE BLOOD COUNT 14.7 K/mm3 (4.0-10.0)
[2017-05-27 06:52] LABS: ALBUMIN 3.1 g/dl (3.4-5.0); ANION GAP 10 (8-16); CALCIUM 8.2 mg/dL (8.5-10.1); CO2 22 mmol/L (21-32); GLUCOSE,RANDOM 102 mg/dL (74-106); SGOT/AST 11 U/L (15-37); SGPT/ALT 21 U/L (12-78)
[2017-05-27 06:54] LABS: ALK PHOS 77 U/L (45-117); CREATININE 1.4 mg/dL (0.7-1.3)
--- NOTE | 2017-05-27 08:25 | CON.ID ---
Consult Consult Specialty:: Infectious Disease Reason for Consultation:: L upper and lower lobe PNA - History of Present Illness History of Present Illness: 61yo M with HTN and diastolic dysfunction who presented to the ED 05/26/17 after a colonoscopy performed by Dr. Hernandez due to fever, chills, and SOB. Pt reports being home about 1-2 hours before returning back to the ED. He states Dr. Hernandez gave him antibiotic prophylaxis for the colonoscopy; however he does not remember the specific medication. He is a former smoker from when he was an adolescent, but has not smoked in greater than 10+ years. He is also non- diabetic. Denies any sputum production, sick contacts, urinary symptoms, abdominal pain/discomfort, diarrhea/constipation. Pt received one dose of Levaquin in ED on 05/26 already; blood cultures were drawn and sent, and rapid flu test was negative. NKDA SoHx: Lives at home with mother who is in relatively good health. Med Hx: Thoracic aneurysm repair 2014 at [facility] - History Source History Provided By: Patient, Medical Record Limitations to Obtaining History: No Limitations - Past Medical History Cardio/Vascular: Yes: HTN, Other (Diastolic dysfunction) Pulmonary: Yes: COPD, Sleep Apnea. No: O2 Dependent, Pulmonary Embolus Hepatobiliary: Yes: Other (Cholecystectomy) Musculoskeletal: Yes: Other (right hip arthritis) - Past Surgical History Past Surgical History: Yes: Cholecystectomy - Alcohol/Substance Use Hx Alcohol Use: No History of Substance Use: reports: None - Smoking History Smoking history: Never smoked Have you smoked in the past 12 months: No Aproximately how many cigarettes per day: 0 - Social History Usual Living Arrangement: Alone History of Recent Travel: No Home Medications - Allergies Allergies/Adverse Reactions: Allergies Allergy/AdvReac Type Severity Reaction Status Date / Time No Known Allergies Allergy Verified 05/26/17 16:15 - Home Medications Home Medications: Ambulatory Orders Zolpidem Tartrate [Ambien] 10 mg PO HS 06/22/13 Aspirin [Aspir 81] 81 mg PO DAILY 08/17/15 Amlodipine/Valsartan/Hcthiazid [Exforge Hct 10-320-25 mg Tab] 1 each PO DAILY Oxybutynin Chloride [Ditropan Xl] 5 mg PO DAILY 02/20/17 Pantoprazole Sodium 40 mg PO DAILY 02/20/17 Oxycodone HCl/Acetaminophen [Endocet 5-325 Tablet] 1 tab PO PRN PRN 05/25/17 Physical Exam Vital Signs: Vital Signs Temperature 99.7 F H 05/26/17 20:29 Pulse Rate 110 H 05/27/17 07:10 Respiratory Rate 18 05/26/17 20:29 Blood Pressure 117/76 05/27/17 07:10 O2 Sat by Pulse Oximetry (%) 96 05/27/17 07:10 Constitutional: Yes: Well Nourished, No Distress, Calm Eyes: Yes: EOM Intact, PERRL HENT: Yes: Other (Moist Mucosa) Cardiovascular: Yes: Regular Rate and Rhythm. No: Murmur Respiratory: Yes: Regular, Rhonchi, Wheezes. No: Cough, On Nasal O2, SOB Gastrointestinal: Yes: Normal Bowel Sounds, Soft. No: Hepatomegaly, Splenomegaly, Tenderness Edema: No Neurological: Yes: Alert, Oriented Psychiatric: Yes: Alert, Oriented Labs: CBC, BMP 05/27/17 06:10 05/27/17 06:10 Imaging - Results Cat Scan: Report Reviewed, Image Reviewed Assessment/Plan Assessment: Severe sepsis secondary to possible aspiration pneumonitis Lactic Acidosis; resolved currently Plan: D/C Levaquin Start Ertapenem 1gm IV qDaily for coverage of anaerobes HIV unknown status; would like to test for HIV
--- NOTE | 2017-05-27 08:50 | PN ---
Teaching Attending Note Name of Resident: Beau Roger ATTENDING PHYSICIAN STATEMENT I saw and evaluated the patient. I reviewed the resident's note and discussed the case with the resident. I agree with the resident's findings and plan as documented. SUBJECTIVE:This is a 61 year old male went home after uneventful colonoscopy yesterday with Propofol sedation Got home and 20 minutes latter became SOB febrile 102 with chills. History of thoracic aneursym repair 2013 [place]. Former smoker many years ago but no History of COPD asthma. Travel to [place] February 2017. Unemployed Denies alcohol drug HIV ??? OBJECTIVE: ASSESSMENT AND PLAN: Suspect aspiration PNEUMONIA post sedation Based on exam no evidence for bowel perforation Plan Cultures Eterpenem. 1 gram daily HIV testing Tariq CARR Problem List - Problems (1) Acute renal failure Code(s): N17.9 - ACUTE KIDNEY FAILURE, UNSPECIFIED Qualifiers: Acute renal failure type: unspecified Qualified Code(s): N17.9 - Acute kidney failure, unspecified (2) Left lower lobe pneumonia Code(s): J18.1 - LOBAR PNEUMONIA, UNSPECIFIED ORGANISM Qualifiers: Pneumonia type: due to unspecified organism Qualified Code(s): J18.1 - Lobar pneumonia, unspecified organism (3) Aspiration into respiratory tract Code(s): T17.908A - UNSP FB IN RESP TRACT, PART UNSP CAUSING OTH INJURY, INIT
--- NOTE | 2017-05-27 10:21 | PN ---
Progress Note, Physician Chief Complaint: awake alert feeling short of breath still - Current Medication List Current Medications: Active Medications Acetaminophen (Tylenol -) 650 mg PO Q6H PRN PRN Reason: FEVER OR PAIN Acetaminophen (Tylenol -) 325 mg PO Q6H PRN PRN Reason: PAIN Albuterol/Ipratropium (Duoneb -) 1 amp NEB Q6H PRN PRN Reason: SHORTNESS OF BREATH Amlodipine Besylate (Norvasc -) 10 mg PO DAILY [facility] Atorvastatin Calcium (Lipitor -) 20 mg PO HS [facility] Last Admin: 05/26/17 22:53 Dose: 20 mg Heparin Sodium (Porcine) (Heparin -) 5,000 unit SQ BID [facility] Last Admin: 05/26/17 22:53 Dose: 5,000 unit Levofloxacin (Levaquin 250 Mg Premixed Ivpb -) 50 mls @ 50 mls/hr IVPB DAILY [facility] Ertapenem 1 gm/ Sodium (Chloride) 50 mls @ 50 mls/hr IVPB DAILY [facility] PRN Reason: Protocol Oxybutynin Chloride (Ditropan -) 5 mg PO BID [facility] Last Admin: 05/27/17 00:00 Dose: 5 mg Oxycodone HCl (Roxicodone -) 5 mg PO Q6H PRN PRN Reason: PAIN Pantoprazole Sodium (Protonix -) 40 mg PO DAILY [facility] Zolpidem Tartrate (Ambien -) 10 mg PO HS PRN PRN Reason: INSOMNIA - Objective Vital Signs: Vital Signs Temperature 99.7 F H 05/26/17 20:29 Pulse Rate 110 H 05/27/17 07:10 Respiratory Rate 18 05/26/17 20:29 Blood Pressure 117/76 05/27/17 07:10 O2 Sat by Pulse Oximetry (%) 96 05/27/17 07:10 Constitutional: Yes: Mild Distress Eyes: Yes: WNL HENT: Yes: WNL Neck: Yes: WNL Cardiovascular: Yes: WNL Respiratory: Yes: Diminished, Rhonchi Gastrointestinal: Yes: WNL Genitourinary: Yes: WNL Musculoskeletal: Yes: Back Pain Extremities: Yes: WNL Edema: No Peripheral Pulses WNL: Yes Integumentary: Yes: WNL Wound/Incision: Yes: Clean/Dry Neurological: Yes: WNL ...Motor Strength: WNL Psychiatric: Yes: WNL Labs: CBC, BMP 05/27/17 06:10 05/27/17 06:10 INR, PTT INR 1.11 (0.82-1.09) 05/26/17 16:41 Problem List - Problems (1) Left lower lobe pneumonia Code(s): J18.1 - LOBAR PNEUMONIA, UNSPECIFIED ORGANISM Qualifiers: Pneumonia type: due to unspecified organism Qualified Code(s): J18.1 - Lobar pneumonia, unspecified organism (2) Sepsis Code(s): A41.9 - SEPSIS, UNSPECIFIED ORGANISM Qualifiers: Sepsis type: sepsis due to unspecified organism Qualified Code(s): A41.9 - Sepsis, unspecified organism (3) Acute renal failure Code(s): N17.9 - ACUTE KIDNEY FAILURE, UNSPECIFIED Qualifiers: Acute renal failure type: unspecified Qualified Code(s): N17.9 - Acute kidney failure, unspecified Assessment/Plan IV ABX NEBS PAIN CONTROL DVT PROPHYLAXIS OOB TO CHAIR PULM EVAL RENAL FAILURE IVF RENAL SONO HTN AND SOB CHECK ECHO AND CT CHEST PULM EVAL
[2017-05-27 10:29] VITALS: BMI 31.9
[2017-05-27 11:32] LABS: C-REACTIVE PROTEIN 7.9 MG/DL (0.00-0.3)
[2017-05-27] MEDS: PANTOPRAZOLE 40 MG TABLET (FP) PO SCH (11:38)
[2017-05-27] MEDS: OXYBUTYNIN CHLORIDE 5 MG TABLET PO SCH ×3 (11:38→22:05)
[2017-05-27] MEDS: LEVOFLOXACIN 250 MG IVPB 50 ML IVPB SCH (11:38)
[2017-05-27] MEDS: amLODIPine BESYLATE 10 MG TABLET (FP) PO SCH (11:38)
[2017-05-27] MEDS: HEPARIN NA (PORCINE) 5,000 UNITS/ML 1ML VIAL SQ SCH ×2 (11:38→22:05)
[2017-05-27] MEDS ORDERED: FLU VACCINE QUAD 60 MCG/0.5 ML (MDV 17-18) IM ONE (12:00)
[2017-05-27] MEDS: ERTAPENEM SODIUM 1 GM in SODIUM CHLORIDE 50 ML IVPB SCH (12:42)
[2017-05-27 12:57] LABS: HIV 1 & 2 AB NEGATIVE; HIV 1 AGp24 NEGATIVE
--- NOTE | 2017-05-27 13:09 | EKG ---
Test Reason : Blood Pressure : / mmHG Vent. Rate : 103 BPM Atrial Rate : 103 BPM P-R Int : 144 ms QRS Dur : 096 ms QT Int : 336 ms P-R-T Axes : 030 -42 092 degrees QTc Int : 440 ms SINUS TACHYCARDIA POSSIBLE LEFT ATRIAL ENLARGEMENT LEFT AXIS DEVIATION LEFT VENTRICULAR HYPERTROPHY WITH REPOLARIZATION ABNORMALITY ABNORMAL ECG WHEN COMPARED WITH ECG OF 08-MAY-2016 08:31, VENT. RATE HAS INCREASED BY 52 BPM QRS DURATION HAS DECREASED Confirmed by DANIELLE ARORA MD ([id number]) on 05/27/2017 1:09:14 PM Referred By: Confirmed By:DANIELLE ARORA MD
--- NOTE | 2017-05-27 13:36 | CONSULT ---
Consultation: REQUESTING PROVIDER: Dr. Lutz CONSULT REQUEST: We have been asked to medically evaluate this patient for pneumonia. HISTORY OF PRESENT ILLNESS: 61 y/o M with PMH diastolic dysfunction, HTN, hyperlipidemia, bladder incontinence, who presented to ED s/p colonoscopy, after developing sudden SOB, fever, and chills. Pt admitted for sepsis secondary to L lower lobe pneumonia. Pulm team consulted to f/u on L lower lobe pneumonia. Today, pt states that he no longer has SOB. Denies fever, chills, headache, chest pain, cough, or any changes in urinary or bowel function. REVIEW OF SYSTEMS: CONSTITUTIONAL: Absent: fever, chills, diaphoresis, generalized weakness, malaise, loss of appetite, weight change HEENT: Absent: rhinorrhea, nasal congestion, throat pain, throat swelling, difficulty swallowing, mouth swelling, ear pain, eye pain, visual changes CARDIOVASCULAR: Absent: chest pain, syncope, palpitations, irregular heart rate, lightheadedness , peripheral edema RESPIRATORY: Absent: cough, shortness of breath, dyspnea with exertion, orthopnea, wheezing, stridor, hemoptysis GASTROINTESTINAL: Absent: abdominal pain, abdominal distension, nausea, vomiting, diarrhea, constipation, melena, hematochezia GENITOURINARY: Absent: dysuria, frequency, urgency, hesitancy, hematuria, flank pain, genital pain MUSCULOSKELETAL: Absent: myalgia, arthralgia, joint swelling, back pain, neck pain SKIN: Absent: rash, itching, pallor HEMATOLOGIC/IMMUNOLOGIC: Absent: easy bleeding, easy bruising, lymphadenopathy, frequent infections ENDOCRINE: Absent: unexplained weight gain, unexplained weight loss, heat intolerance, cold intolerance NEUROLOGIC: Absent: headache, focal weakness or paresthesias, dizziness, unsteady gait, seizure, mental status changes, bladder or bowel incontinence PSYCHIATRIC: Absent: anxiety, depression, suicidal or homicidal ideation, hallucinations. PHYSICAL EXAMINATION Vital Signs - 24 hr 05/26/17 05/27/17 05/27/17 20:29 07:10 10:10 Temperature 99.7 F H Pulse Rate 80 Pulse Rate [ 90 110 H Apical] Respiratory 18 18 Rate Blood Pressure 124/74 Blood Pressure 111/68 117/76 [Right Arm] O2 Sat by Pulse 92 L 96 96 Oximetry (%) 05/27/17 12:50 Temperature 98.6 F Pulse Rate 68 Pulse Rate [ Apical] Respiratory 18 Rate Blood Pressure 129/75 Blood Pressure [Right Arm] O2 Sat by Pulse 96 Oximetry (%) GENERAL: Awake, alert, and fully oriented, in no acute distress. HEAD: Normal with no signs of trauma. EYES: Pupils equal, round and reactive to light, extraocular movements intact, sclera anicteric, conjunctiva clear. No lid lag. EARS, NOSE, THROAT: Ears normal, nares patent, oropharynx clear without exudates. Moist mucous membranes. NECK: Normal range of motion, supple without lymphadenopathy, JVD, or masses. LUNGS: rhonchi appreciated b/l, increased in lung bases b/l. No egophony noted. HEART: Regular rate and rhythm, normal S1 and S2 without murmur, rub or gallop. ABDOMEN: Soft, nontender, not distended, normoactive bowel sounds, no guarding, no rebound, no masses. No hepatomegaly or splenomegaly. MUSCULOSKELETAL: Normal range of motion at all joints. No bony deformities or tenderness. No CVA tenderness. UPPER EXTREMITIES: 2+ radial pulses, warm, well-perfused. No cyanosis. No clubbing. Cap refill <2 seconds. No peripheral edema. LOWER EXTREMITIES: 2+ posterior tibial pulses, warm, well-perfused. No calf tenderness. No peripheral edema. NEUROLOGICAL: Cranial nerves II-XII intact. Laboratory Results - last 24 hr 05/26/17 05/27/17 05/27/17 Unknown 06:10 06:10 WBC 14.7 H RBC 4.14 Hgb 12.8 D Hct 37.2 MCV 89.7 MCH 30.9 MCHC 34.4 RDW 13.8 Plt Count 212 MPV 8.7 Sodium 140 Potassium 3.9 Chloride 108 H Carbon Dioxide 22 Anion Gap 10 BUN 30 H D Creatinine 1.4 H D Creat Clearance w eGFR 51.69 Random Glucose 102 Lactic Acid Calcium 8.2 L Total Bilirubin 1.0 AST 11 L D ALT 21 D Alkaline Phosphatase 77 C-Reactive Protein 7.9 H Total Protein 6.0 L D Albumin 3.1 L D Urine Color Ltyellow Urine Appearance Clear Urine pH 5.0 Ur Specific [place] <= 1.005 Urine Protein Negative Urine Glucose (UA) Negative Urine Ketones Negative Urine Blood Negative Urine Nitrite Negative Urine Bilirubin Negative Urine Urobilinogen Negative HIV 1&2 Antibody Screen HIV P24 Antigen 0905/27/17 05/27/17 06:10 06:10 11:17 WBC RBC Hgb Hct MCV MCH MCHC RDW Plt Count MPV Sodium Potassium Chloride Carbon Dioxide Anion Gap BUN Creatinine Creat Clearance w eGFR Random Glucose Lactic Acid 0.7 Calcium Total Bilirubin AST ALT Alkaline Phosphatase C-Reactive Protein Cancelled Total Protein Albumin Urine Color Urine Appearance Urine pH Ur Specific [place] Urine Protein Urine Glucose (UA) Urine Ketones Urine Blood Urine Nitrite Urine Bilirubin Urine Urobilinogen HIV 1&2 Antibody Screen Negative HIV P24 Antigen Negative Active Medications Generic Name Dose Route Start Last Admin Trade Name Freq PRN Reason Stop Dose Admin Acetaminophen 650 mg 05/26/17 20:30 Tylenol - PO Q6H PRN FEVER OR PAIN Acetaminophen 325 mg 05/26/17 20:42 Tylenol - PO Q6H PRN PAIN Albuterol/Ipratropium 1 amp 05/26/17 20:30 Duoneb - NEB Q6H PRN SHORTNESS OF BREATH Amlodipine Besylate 10 mg 05/27/17 10:00 05/27/17 11:38 Norvasc - PO 10 mg DAILY DOMINIQUE Administration Atorvastatin Calcium 20 mg 05/26/17 22:00 05/26/17 22:53 Lipitor - PO 20 mg HS DOMINIQUE Administration Heparin Sodium (Porcine) 5,000 unit 05/26/17 22:00 05/27/17 11:38 Heparin - SQ 5,000 unit BID DOMINIQUE Administration Levofloxacin 50 mls @ 50 mls/hr 05/27/17 10:00 05/27/17 11:38 Levaquin 250 Mg Premixed Ivpb - IVPB 50 mls/hr DAILY DOMINIQUE Administration Ertapenem 1 gm/ Sodium 50 mls @ 50 mls/hr 05/27/17 10:00 05/27/17 12:42 Chloride IVPB 50 mls/hr DAILY DOMINIQUE Administration Protocol Oxybutynin Chloride 5 mg 05/26/17 22:00 05/27/17 11:38 Ditropan - PO 5 mg BID DOMINIQUE Administration Oxycodone HCl 5 mg 05/26/17 20:42 Roxicodone - PO Q6H PRN PAIN Pantoprazole Sodium 40 mg 05/27/17 10:00 05/27/17 11:38 Protonix - PO 40 mg DAILY [facility]INIQUE Administration Zolpidem Tartrate 10 mg 05/26/17 20:30 Ambien - PO HS PRN INSOMNIA ASSESSMENT/PLAN: 61 y/o M with PMH diastolic dysfunction, HTN, hyperlipidemia, bladder incontinence, who presented to ED s/p colonoscopy, after developing sudden SOB, fever, and chills. Pt admitted for sepsis secondary to L lower lobe pneumonia. #L lower lobe pneumonia most likely secondary to aspiration -afebrile, without tachycardia, leukocytosis 14.7, 02 sat 96% -as per pt, he has improved greatly, no longer SOB -today is Day 1 of Ertapenem, continue and trend WBCs -Continue duonebs 1 amp neb q6 PRN -F/u urine cx -F/u blood cx Rest as per primary team Dispo: We will continue to follow the patient. Thank you for this consultative opportunity. Visit type - Emergency Visit Emergency Visit: No - New Patient This patient is new to me today: Yes Date on this admission: 05/27/17 - Critical Care Critical Care patient: No
--- NOTE | 2017-05-27 13:59 | CONSULT ---
Consult Consult Specialty:: Nephrology Reason for Consultation:: MARIO - History of Present Illness Chief Complaint: cough and shortness of breath History of Present Illness: Pt is a 61 year old male with pmhx of CHF and HTN who presents to the ER with shortness of breath and chills. He had a colonoscopy earlier in the day. He is admitted for treatment of PNA. I was called to evaluate him for acute renal failure. He denies history of CKD. He denies nsaid use. He is awake and alert. He still complains of cough. He denies family history of kidney disease. He is on exforge for htn. - History Source History Provided By: Patient, Medical Record - Past Medical History Cardio/Vascular: Yes: CHF, HTN Pulmonary: Yes: COPD, Sleep Apnea Hepatobiliary: Yes: Other (Cholecystectomy) Musculoskeletal: Yes: Osteoarthritis, Other (right hip arthritis) - Past Surgical History Past Surgical History: Yes: Cholecystectomy - Alcohol/Substance Use Hx Alcohol Use: No History of Substance Use: reports: None - Smoking History Smoking history: Never smoked Have you smoked in the past 12 months: No Aproximately how many cigarettes per day: 0 - Social History Usual Living Arrangement: Alone History of Recent Travel: No Home Medications - Allergies Allergies/Adverse Reactions: Allergies Allergy/AdvReac Type Severity Reaction Status Date / Time No Known Allergies Allergy Verified 05/26/17 16:15 - Home Medications Home Medications: Ambulatory Orders Zolpidem Tartrate [Ambien] 10 mg PO HS 06/22/13 Aspirin [Aspir 81] 81 mg PO DAILY 08/17/15 Amlodipine/Valsartan/Hcthiazid [Exforge Hct 10-320-25 mg Tab] 1 each PO DAILY Oxybutynin Chloride [Ditropan Xl] 5 mg PO DAILY 02/20/17 Pantoprazole Sodium 40 mg PO DAILY 02/20/17 Oxycodone HCl/Acetaminophen [Endocet 5-325 Tablet] 1 tab PO PRN PRN 05/25/17 Family Disease History - Family Disease History Family History: Denies Review of Systems - Review of Systems Constitutional: reports: Chills, Fever Eyes: reports: No Symptoms HENT: reports: No Symptoms Neck: reports: No Symptoms Cardiovascular: reports: No Symptoms Respiratory: reports: Cough, SOB on Exertion Genitourinary: reports: No Symptoms Musculoskeletal: reports: No Symptoms Neurological: reports: No Symptoms Endocrine: reports: No Symptoms Hematology/Lymphatic: reports: No Symptoms Psychiatric: reports: No Symptoms Physical Exam Vital Signs: Vital Signs Temperature 98.1 F 05/27/17 13:48 Pulse Rate 98 H 05/27/17 13:48 Respiratory Rate 18 05/27/17 12:50 Blood Pressure 113/59 05/27/17 13:48 O2 Sat by Pulse Oximetry (%) 96 05/27/17 12:50 Constitutional: Yes: Calm Eyes: Yes: Conjunctiva Clear HENT: Yes: Atraumatic Cardiovascular: Yes: S1, S2 Respiratory: Yes: On Nasal O2 Gastrointestinal: Yes: Normal Bowel Sounds, Soft Renal/: Yes: WNL Musculoskeletal: Yes: WNL Edema: No Neurological: Yes: Oriented Psychiatric: Yes: Oriented Labs: CBC, BMP 05/27/17 06:10 05/27/17 06:10 Laboratory Tests 06/22/13 06/23/13 05/26/17 15:15 06:15 16:50 WBC Hgb Sodium Potassium Chloride Carbon Dioxide Anion Gap Creatinine 0.9 0.7 D 1.9 H D BUN Random Glucose 110 H D Lactic Acid Urine Protein Urine Glucose (UA) Urine Ketones Urine Blood Urine Nitrite Urine Bilirubin Urine Urobilinogen HIV 1&2 Antibody Screen HIV P24 Antigen 05/26/17 05/26/17 05/27/17 16:50 Unknown 06:10 WBC 14.7 H Hgb 12.8 D Sodium Potassium Chloride Carbon Dioxide Anion Gap Creatinine BUN Random Glucose Lactic Acid 2.3 H* Urine Protein Negative Urine Glucose (UA) Negative Urine Ketones Negative Urine Blood Negative Urine Nitrite Negative Urine Bilirubin Negative Urine Urobilinogen Negative HIV 1&2 Antibody Screen HIV P24 Antigen 05/27/17 05/27/17 06:10 11:17 WBC Hgb Sodium 140 Potassium 3.9 Chloride 108 H Carbon Dioxide 22 Anion Gap 10 Creatinine 1.4 H D BUN 30 H D Random Glucose Lactic Acid Urine Protein Urine Glucose (UA) Urine Ketones Urine Blood Urine Nitrite Urine Bilirubin Urine Urobilinogen HIV 1&2 Antibody Screen Negative HIV P24 Antigen Negative Imaging - Results Chest X-ray: Report Reviewed Cat Scan: Report Reviewed Ultrasound: Report Reviewed Problem List - Problems (1) Acute renal failure Code(s): N17.9 - ACUTE KIDNEY FAILURE, UNSPECIFIED Qualifiers: Acute renal failure type: unspecified Qualified Code(s): N17.9 - Acute kidney failure, unspecified (2) Sepsis Code(s): A41.9 - SEPSIS, UNSPECIFIED ORGANISM Qualifiers: Sepsis type: sepsis due to unspecified organism Qualified Code(s): A41.9 - Sepsis, unspecified organism (3) Pneumonia Code(s): J18.9 - PNEUMONIA, UNSPECIFIED ORGANISM Assessment/Plan Current Medications Generic Name Dose Route Start Last Admin Trade Name Freq PRN Reason Stop Dose Admin Acetaminophen 650 mg 05/26/17 20:30 Tylenol - PO Q6H PRN FEVER OR PAIN Acetaminophen 325 mg 05/26/17 20:42 Tylenol - PO Q6H PRN PAIN Albuterol/Ipratropium 1 amp 05/26/17 20:30 Duoneb - NEB Q6H PRN SHORTNESS OF BREATH Amlodipine Besylate 10 mg 05/27/17 10:00 05/27/17 11:38 Norvasc - PO 10 mg DAILY DOMINIQUE Administration Atorvastatin Calcium 20 mg 05/26/17 22:00 05/26/17 22:53 Lipitor - PO 20 mg HS DOMINIQUE Administration Heparin Sodium (Porcine) 5,000 unit 05/26/17 22:00 05/27/17 11:38 Heparin - SQ 5,000 unit BID DOMINIQUE Administration Levofloxacin 50 mls @ 50 mls/hr 05/27/17 10:00 05/27/17 11:38 Levaquin 250 Mg Premixed Ivpb - IVPB 50 mls/hr DAILY DOMINIQUE Administration Ertapenem 1 gm/ Sodium 50 mls @ 50 mls/hr 05/27/17 10:00 05/27/17 12:42 Chloride IVPB 50 mls/hr DAILY DOMINIQUE Administration Protocol Oxybutynin Chloride 5 mg 05/26/17 22:00 05/27/17 11:38 Ditropan - PO 5 mg BID DOMINIQUE Administration Oxycodone HCl 5 mg 05/26/17 20:42 Roxicodone - PO Q6H PRN PAIN Pantoprazole Sodium 40 mg 05/27/17 10:00 05/27/17 11:38 Protonix - PO 40 mg DAILY DOMINIQUE Administration Zolpidem Tartrate 10 mg 05/26/17 20:30 Ambien - PO HS PRN INSOMNIA Impression 1. MARIO 2. PNA 3. HTN 4. CHF 5. htn 6. hyperlipidemia Plan - renal function is improving with fluids - repeat labs in am - hold thiazide and arb - agree with amlodipine - renal ultrasound reviewewd - will order urine lytes and broadcast director operations - cont to trend renal function Dr Hendricks
--- NOTE | 2017-05-27 15:31 | PN ---
Teaching Attending Note Name of Resident: Irma Cho ATTENDING PHYSICIAN STATEMENT I saw and evaluated the patient. I reviewed the resident's note and discussed the case with the resident. I agree with the resident's findings and plan as documented. Candice WATSON MD
[2017-05-27] MEDS ORDERED: SODIUM CHLORIDE 0.45% 1,000 ML IV SCH (16:30)
[2017-05-27] MEDS: ATORVASTATIN CA 20 MG TABLET (FP) PO SCH (22:05)
[2017-05-28 02:15] VITALS: TEMP 98.3
--- NOTE | 2017-05-28 07:47 | PN ---
Physical Exam: SUBJECTIVE: Patient doing much better. Pt says SOB was resolved yesterday and no reoccurrences of fever/chills like before. Patient has no new complaints. Today will be Ertapenem Day 2 OBJECTIVE: Vital Signs Period Temp Pulse Resp BP Sys/Delacruz Pulse Ox Last 24 Hr 98.1 F-98.6 F 68-98 18-18 113-129/59-75 96-96 GENERAL: The patient is awake, alert, and fully oriented, in no acute distress. HEENT: Moist mucosa LUNGS: Lower lobe rhonchous breath sounds heard. Wheezing has decreased from yesterdays exam. Regular. HEART: RRR, S1, S2 without murmur, rub or gallop. ABDOMEN: Soft, nontender, nondistended, normoactive bowel sounds, no guarding, no rebound EXTREMITIES: No edema NEUROLOGICAL: Alert and oriented PSYCH: Normal mood, normal affect. SKIN: Warm, dry, no rashes or lesions noted Laboratory Results - last 24 hr 05/27/17 05/27/17 05/27/17 06:10 06:10 11:17 Sodium 140 Potassium 3.9 Chloride 108 H Carbon Dioxide 22 Anion Gap 10 BUN 30 H D Creatinine 1.4 H D Creat Clearance w eGFR 51.69 Random Glucose 102 Calcium 8.2 L Total Bilirubin 1.0 AST 11 L D ALT 21 D Alkaline Phosphatase 77 C-Reactive Protein 7.9 H Cancelled Total Protein 6.0 L D Albumin 3.1 L D Ur Random Sodium Ur Random Potassium Ur Random Chloride Urine Creatinine HIV 1&2 Antibody Screen Negative HIV P24 Antigen Negative 05/27/17 05/27/17 19:30 19:30 Sodium Potassium Chloride Carbon Dioxide Anion Gap BUN Creatinine Creat Clearance w eGFR Random Glucose Calcium Total Bilirubin AST ALT Alkaline Phosphatase C-Reactive Protein Total Protein Albumin Ur Random Sodium 56 Ur Random Potassium 24.8 Ur Random Chloride 53 Urine Creatinine 161.0 HIV 1&2 Antibody Screen HIV P24 Antigen Active Medications Generic Name Dose Route Start Last Admin Trade Name Freq PRN Reason Stop Dose Admin Acetaminophen 650 mg 05/26/17 20:30 Tylenol - PO Q6H PRN FEVER OR PAIN Acetaminophen 325 mg 05/26/17 20:42 Tylenol - PO Q6H PRN PAIN Albuterol/Ipratropium 1 amp 05/26/17 20:30 Duoneb - NEB Q6H PRN SHORTNESS OF BREATH Amlodipine Besylate 10 mg 05/27/17 10:00 05/27/17 11:38 Norvasc - PO 10 mg DAILY DOMINIQUE Administration Atorvastatin Calcium 20 mg 05/26/17 22:00 05/27/17 22:05 Lipitor - PO 20 mg HS DOMINIQUE Administration Heparin Sodium (Porcine) 5,000 unit 05/26/17 22:00 05/27/17 22:05 Heparin - SQ 5,000 unit BID DOMINIQUE Administration Levofloxacin 50 mls @ 50 mls/hr 05/27/17 10:00 05/27/17 11:38 Levaquin 250 Mg Premixed Ivpb - IVPB 50 mls/hr DAILY DOMINIQUE Administration Ertapenem 1 gm/ Sodium 50 mls @ 50 mls/hr 05/27/17 10:00 05/27/17 12:42 Chloride IVPB 50 mls/hr DAILY DOMINIQUE Administration Protocol Sodium Chloride 1,000 mls @ 42 mls/hr 05/27/17 16:30 05/27/17 22:46 1/2 Normal Saline IV 42 mls/hr ASDIR DOMINIQUE Administration Oxybutynin Chloride 5 mg 05/26/17 22:00 05/27/17 22:05 Ditropan - PO 5 mg BID DOMINIQUE Administration Oxycodone HCl 5 mg 05/26/17 20:42 Roxicodone - PO Q6H PRN PAIN Pantoprazole Sodium 40 mg 05/27/17 10:00 05/27/17 11:38 Protonix - PO 40 mg DAILY DOMINIQUE Administration Zolpidem Tartrate 10 mg 05/26/17 20:30 05/27/17 22:09 Ambien - PO 10 mg HS PRN Administration INSOMNIA ASSESSMENT Aspiration pneumonitis PLAN: Pt doing much better clinically; wants to go home Continue Day 2 Ertapenem to cover for anaerobic activity from suspected aspiration PNA Visit type - Emergency Visit Emergency Visit: No - New Patient This patient is new to me today: No - Critical Care Critical Care patient: No - Discharge Referral Referred to [facility] Med P.C.: No
[2017-05-28 09:01] LABS: ALBUMIN 3.5 g/dl (3.4-5.0); ANION GAP 9 (8-16); CALCIUM 8.8 mg/dL (8.5-10.1); CO2 21 mmol/L (21-32); GLUCOSE,RANDOM 99 mg/dL (74-106)
[2017-05-28 09:05] LABS: ALK PHOS 106 U/L (45-117); BILIRUBIN,TOTAL 0.6 mg/dL (0.2-1.0); CREATININE 1.2 mg/dL (0.7-1.3); SGOT/AST 7 U/L (15-37); SGPT/ALT 22 U/L (12-78); TOT PROT 6.8 g/dl (6.4-8.2)
[2017-05-28] MEDS ORDERED: PT OWN MED DRAWER 7, Y5N ONE (09:36)
[2017-05-28] MEDS: OXYBUTYNIN CHLORIDE 5 MG TABLET PO SCH (09:48)
[2017-05-28] MEDS: ERTAPENEM SODIUM 1 GM in SODIUM CHLORIDE 50 ML IVPB SCH (09:49)
[2017-05-28] MEDS: amLODIPine BESYLATE 10 MG TABLET (FP) PO SCH (09:50)
[2017-05-28] MEDS: PANTOPRAZOLE 40 MG TABLET (FP) PO SCH (09:52)
[2017-05-28] MEDS: HEPARIN NA (PORCINE) 5,000 UNITS/ML 1ML VIAL SQ SCH (09:56)
--- NOTE | 2017-05-28 10:03 | PN ---
Teaching Attending Note Name of Resident: Beau Roger ATTENDING PHYSICIAN STATEMENT I saw and evaluated the patient. I reviewed the resident's note and discussed the case with the resident. I agree with the resident's findings and plan as documented. SUBJECTIVE:Subjective improvement ERTEPENEM DAY 2 Rx OBJECTIVE:AFEBRILE VSS ASSESSMENT AND PLAN: Microbiology 05/26/17 18:00 Nasopharyngeal Swab Influenza Types A,B Antigen (CHARLY) - Final 05/26/17 18:00 Nasopharyngeal Swab - Final 05/26/17 17:00 Blood - Peripheral Venous Blood Culture - Preliminary NO GROWTH OBTAINED AFTER 24 HOURS, INCUBATION TO CONTINUE FOR 4 DAYS. 05/26/17 16:50 Blood - Peripheral Venous Blood Culture - Preliminary NO GROWTH OBTAINED AFTER 24 HOURS, INCUBATION TO CONTINUE FOR 4 DAYS. Selected Entries 05/26/17 05/26/17 05/27/17 15:46 20:29 07:10 Temperature 102.4 F H 99.7 F H Pulse Rate 103 H Pulse Rate [ 110 H Apical] Respiratory 26 H Rate Blood Pressure 129/73 Blood Pressure 117/76 [Right Arm] O2 Sat by Pulse 94 L 96 Oximetry (%) Laboratory Tests 05/26/17 05/27/17 05/27/17 16:50 06:10 06:10 WBC 14.7 H RBC 4.14 Hgb 12.8 D Plt Count 212 Creatinine Creat Clearance w eGFR 51.69 Lactic Acid 2.3 H* Total Bilirubin 1.0 AST 11 L D ALT 21 D Alkaline Phosphatase 77 HIV 1&2 Antibody Screen HIV P24 Antigen 05/27/17 05/28/17 11:17 06:45 WBC RBC Hgb Plt Count Creatinine 1.2 Creat Clearance w eGFR Lactic Acid Total Bilirubin AST ALT Alkaline Phosphatase HIV 1&2 Antibody Screen Negative HIV P24 Antigen Negative Assessment ASPIRATION PNEUMONITIS IMPROVED PLan Can discharge tomorrow on Augmentin guessing he will be stable to go Tariq CARR Problem List - Problems (1) Acute renal failure Code(s): N17.9 - ACUTE KIDNEY FAILURE, UNSPECIFIED Qualifiers: Acute renal failure type: unspecified Qualified Code(s): N17.9 - Acute kidney failure, unspecified (2) Left lower lobe pneumonia Code(s): J18.1 - LOBAR PNEUMONIA, UNSPECIFIED ORGANISM Qualifiers: Pneumonia type: due to unspecified organism Qualified Code(s): J18.1 - Lobar pneumonia, unspecified organism (3) Aspiration into respiratory tract Code(s): T17.908A - UNSP FB IN RESP TRACT, PART UNSP CAUSING OTH INJURY, INIT
--- NOTE | 2017-05-28 11:13 | PN ---
Progress Note (short form) - Note Progress Note: Feels overall much better. No SOB or CP. Afebrile Intake & Output 05/25/17 05/26/17 05/27/17 05/28/17 23:59 23:59 23:59 23:59 Intake Total 950 900 Balance 950 900 Weight 270 lb 210 lb Last Vital Signs Temp Pulse Resp BP Pulse Ox 98.3 F 71 18 113/71 96 05/28/17 02:00 05/28/17 02:00 05/28/17 02:00 05/28/17 02:00 05/27/17 12:50 Active Medications Acetaminophen (Tylenol -) 650 mg PO Q6H PRN PRN Reason: FEVER OR PAIN Acetaminophen (Tylenol -) 325 mg PO Q6H PRN PRN Reason: PAIN Albuterol/Ipratropium (Duoneb -) 1 amp NEB Q6H PRN PRN Reason: SHORTNESS OF BREATH Amlodipine Besylate (Norvasc -) 10 mg PO DAILY [facility] Last Admin: 05/28/17 09:50 Dose: 10 mg Atorvastatin Calcium (Lipitor -) 20 mg PO HS [facility] Last Admin: 05/27/17 22:05 Dose: 20 mg Heparin Sodium (Porcine) (Heparin -) 5,000 unit SQ BID [facility] Last Admin: 05/28/17 09:56 Dose: 5,000 unit Levofloxacin (Levaquin 250 Mg Premixed Ivpb -) 50 mls @ 50 mls/hr IVPB DAILY [facility] Last Admin: 05/27/17 11:38 Dose: 50 mls/hr Ertapenem 1 gm/ Sodium (Chloride) 50 mls @ 50 mls/hr IVPB DAILY [facility] PRN Reason: Protocol Last Admin: 05/28/17 09:49 Dose: 50 mls/hr Sodium Chloride (1/2 Normal Saline) 1,000 mls @ 42 mls/hr IV ASDIR [facility] Last Admin: 05/27/17 22:46 Dose: 42 mls/hr Oxybutynin Chloride (Ditropan -) 5 mg PO BID [facility] Last Admin: 05/28/17 09:48 Dose: 5 mg Oxycodone HCl (Roxicodone -) 5 mg PO Q6H PRN PRN Reason: PAIN Pantoprazole Sodium (Protonix -) 40 mg PO DAILY [facility] Last Admin: 05/28/17 09:52 Dose: 40 mg Zolpidem Tartrate (Ambien -) 10 mg PO HS PRN PRN Reason: INSOMNIA Last Admin: 05/27/17 22:09 Dose: 10 mg GENERAL: The patient is awake, alert, and fully oriented, in no acute distress. HEENT: Moist mucosa LUNGS: Scattered rhonchi at the bases HEART: RRR, S1, S2 without murmur, rub or gallop. ABDOMEN: Soft, nontender, nondistended, normoactive bowel sounds, no guarding, no rebound EXTREMITIES: No edema NEUROLOGICAL: Alert and oriented PSYCH: Normal mood, normal affect. SKIN: Warm, dry, no rashes or lesions noted Problem List - Problems (1) Acute renal failure Code(s): N17.9 - ACUTE KIDNEY FAILURE, UNSPECIFIED Qualifiers: Acute renal failure type: unspecified Qualified Code(s): N17.9 - Acute kidney failure, unspecified (2) Left lower lobe pneumonia Code(s): J18.1 - LOBAR PNEUMONIA, UNSPECIFIED ORGANISM Qualifiers: Pneumonia type: due to unspecified organism Qualified Code(s): J18.1 - Lobar pneumonia, unspecified organism (3) Aspiration into respiratory tract Code(s): T17.908A - UNSP FB IN RESP TRACT, PART UNSP CAUSING OTH INJURY, INIT PLAN: ABX per ID O2 as needed Ambulate VTE prophylaxis Dr Herrera
--- NOTE | 2017-05-28 11:22 | DS ---
Physical Examination Vital Signs: Vital Signs Temperature 98.3 F 05/28/17 02:00 Pulse Rate 71 05/28/17 02:00 Respiratory Rate 18 05/28/17 02:00 Blood Pressure 113/71 05/28/17 02:00 O2 Sat by Pulse Oximetry (%) 96 05/27/17 12:50 Findings/Remarks: FEELS GOOD, CLEARED BY ID Constitutional: Yes: No Distress Eyes: Yes: WNL HENT: Yes: WNL Neck: Yes: WNL Cardiovascular: Yes: WNL Respiratory: Yes: WNL Gastrointestinal: Yes: WNL ...Rectal Exam: Yes: WNL Renal/: Yes: WNL Musculoskeletal: Yes: WNL Extremities: Yes: WNL Edema: No Peripheral Pulses WNL: Yes Integumentary: Yes: WNL Wound/Incision: Yes: Clean/Dry Neurological: Yes: WNL ...Motor Strength: WNL Psychiatric: Yes: WNL Labs: CBC, BMP 05/27/17 06:10 05/28/17 06:45 Discharge Summary Reason For Visit: SEPSIS; LEFT LOWER LOBE PNEUMONIA Current Active Problems Acute renal failure (Acute) Aspiration into respiratory tract (Acute) Left lower lobe pneumonia (Acute) Pneumonia (Acute) Sepsis (Acute) Procedures: Principal: LABS/XRAYS/SONOS Other Procedures: CT CHEST/ECHO Hospital Course: ADMITTED WITH ACUTE PNEUMONIA ASPIRATION TYPE, TREATED WITH ABX AND RESP SUPPORT , DC HOME - Instructions Diet, Activity, Other Instructions: LOW SODIUM LOW FAT SEE DR HAZEL 1 WEEK Referrals: Shadi Hazel MD [Primary Care Provider] - Disposition: VNS/HOME HEALTH CARE - Home Medications Comprehensive Discharge Medication List: Ambulatory Orders Zolpidem Tartrate [Ambien] 10 mg PO HS 06/22/13 Aspirin [Aspir 81] 81 mg PO DAILY 08/17/15 Amlodipine/Valsartan/Hcthiazid [Exforge Hct 10-320-25 mg Tab] 1 each PO DAILY Oxybutynin Chloride [Ditropan Xl] 5 mg PO DAILY 02/20/17 Pantoprazole Sodium 40 mg PO DAILY 02/20/17 Oxycodone HCl/Acetaminophen [Endocet 5-325 Tablet] 1 tab PO PRN PRN 05/25/17 Albuterol 2.5/Ipratropium 0.5 [Duoneb -] 1 amp NEB Q6H PRN #1 box 05/28/17 Amlodipine Besylate [Norvasc -] 10 mg PO DAILY tablet 05/28/17 Atorvastatin Ca [Lipitor] 20 mg PO HS tablet 05/28/17 Levofloxacin [Levaquin -] 500 mg PO DAILY #7 tablet 05/28/17 Oxybutynin Chloride [Ditropan -] 5 mg PO BID tablet 05/28/17 Oxycodone HCl/Acetaminophen [Percocet 5-325 mg Tablet] 1 combo PO Q6H PRN #0 tablet MDD 4 05/28/17 Zolpidem Tartrate [Ambien] 10 mg PO HS PRN #0 tablet MDD 1 05/28/17
[2017-05-28] MEDS ORDERED: LEVOFLOXACIN 500 MG TABLET (FP) PO SCH (11:30)
[2017-05-28 11:31] VITALS: BP 104/63; PULSE 70
[2017-05-28] MEDS: LEVOFLOXACIN 250 MG IVPB 50 ML IVPB SCH (11:50)
--- NOTE | 2017-05-28 15:04 | PN ---
Progress Note, Physician History of Present Illness: Pt seen and examined at bedside earlier today. Note being done now as computer system was down. He feels better and is eager to go home. - Objective Vital Signs: Vital Signs Temperature 98.3 F 05/28/17 10:30 Pulse Rate 70 05/28/17 10:30 Respiratory Rate 18 05/28/17 10:30 Blood Pressure 104/63 05/28/17 10:30 O2 Sat by Pulse Oximetry (%) 93 L 05/28/17 09:00 Constitutional: Yes: Calm Eyes: Yes: Conjunctiva Clear HENT: Yes: Atraumatic Neck: Yes: Supple Cardiovascular: Yes: S1, S2 Respiratory: Yes: CTA Bilaterally Gastrointestinal: Yes: Soft Musculoskeletal: Yes: WNL Edema: No Neurological: Yes: Oriented Psychiatric: Yes: Oriented Labs: CBC, BMP 05/27/17 06:10 05/28/17 06:45 INR, PTT INR 1.11 (0.82-1.09) 05/26/17 16:41 Problem List - Problems (1) Acute renal failure Code(s): N17.9 - ACUTE KIDNEY FAILURE, UNSPECIFIED Qualifiers: Acute renal failure type: unspecified Qualified Code(s): N17.9 - Acute kidney failure, unspecified (2) Sepsis Code(s): A41.9 - SEPSIS, UNSPECIFIED ORGANISM Qualifiers: Sepsis type: sepsis due to unspecified organism Qualified Code(s): A41.9 - Sepsis, unspecified organism (3) Pneumonia Code(s): J18.9 - PNEUMONIA, UNSPECIFIED ORGANISM Assessment/Plan Current Medications Generic Name Dose Route Start Last Admin Trade Name Freq PRN Reason Stop Dose Admin Acetaminophen 650 mg 05/26/17 20:30 Tylenol - PO Q6H PRN FEVER OR PAIN Acetaminophen 325 mg 05/26/17 20:42 Tylenol - PO Q6H PRN PAIN Albuterol/Ipratropium 1 amp 05/26/17 20:30 Duoneb - NEB Q6H PRN SHORTNESS OF BREATH Amlodipine Besylate 10 mg 05/27/17 10:00 05/27/17 11:38 Norvasc - PO 10 mg DAILY DOMINIQUE Administration Atorvastatin Calcium 20 mg 05/26/17 22:00 05/26/17 22:53 Lipitor - PO 20 mg HS DOMINIQUE Administration Heparin Sodium (Porcine) 5,000 unit 05/26/17 22:00 05/27/17 11:38 Heparin - SQ 5,000 unit BID DOMINIQUE Administration Levofloxacin 50 mls @ 50 mls/hr 05/27/17 10:00 05/27/17 11:38 Levaquin 250 Mg Premixed Ivpb - IVPB 50 mls/hr DAILY DOMINIQUE Administration Ertapenem 1 gm/ Sodium 50 mls @ 50 mls/hr 05/27/17 10:00 05/27/17 12:42 Chloride IVPB 50 mls/hr DAILY DOMINIQUE Administration Protocol Oxybutynin Chloride 5 mg 05/26/17 22:00 05/27/17 11:38 Ditropan - PO 5 mg BID DOMINIQUE Administration Oxycodone HCl 5 mg 05/26/17 20:42 Roxicodone - PO Q6H PRN PAIN Pantoprazole Sodium 40 mg 05/27/17 10:00 05/27/17 11:38 Protonix - PO 40 mg DAILY DOMINIQUE Administration Zolpidem Tartrate 10 mg 05/26/17 20:30 Ambien - PO HS PRN INSOMNIA Laboratory Tests 05/26/17 05/27/17 05/28/17 16:50 06:10 06:45 Sodium 139 Chloride 109 H Carbon Dioxide 21 Anion Gap 9 BUN 25 H Creatinine 1.2 Lactic Acid 2.3 H* 0.7 Impression 1. MARIO 2. PNA 3. HTN 4. CHF 5. htn 6. hyperlipidemia Plan - renal function is improved - will see in office - renal ultrasound reviewed, cyst will need to be followed - will need to check bmp as outpt if he is discharged - cont to trend renal function Dr Hendricks
== END 2017-05-28 14:00 | disposition home or self-care (01) | DRG 871 ==
LOC: JER 15:46 → JERBED 18:29 → J5S 05-27 11:29
PROVIDERS: ADMIT Family Medicine; ATTEND Family Medicine
DX: A41.9 Sepsis, unspecified organism (principal); J69.0 Pneumonitis due to inhalation of food and vomit; J18.1 Lobar pneumonia, unspecified organism; E87.2 Acidosis; N17.9 Acute kidney failure, unspecified; I10 Essential (primary) hypertension; E78.5 Hyperlipidemia, unspecified; R32 Unspecified urinary incontinence; J44.9 Chronic obstructive pulmonary disease, unspecified; G47.30 Sleep apnea, unspecified; I50.9 Heart failure, unspecified
CPT/HCPCS: 36415; 71010-TC; 71250-TC; 74000-TC; 76775-TC; 76856-TC; 80053; 81003; 82436; 82570; 82803; 83605; 84133; 84300; 84484; 85025; 85027; 85610; 85730; 86140; 87040; 87086; 87389; 87804; 90688; 93005; 93010; 93306-TC; 97116-GP; 97161-GP; 99284-25; G0008; J1644

== ENCOUNTER 2018-08-16 01:09 | Emergency (ER) | payer OTHER ==
[2018-08-16 02:20] LABS: BASO % 0.7 % (0-2.0); EOS % 1.4 % (0-4.5); HEMATOCRIT 41.6 % (35.4-49); HEMOGLOBIN 14.8 GM/dL (11.7-16.9); LYMPH % 23.1 % (8-40); MCH 31.1 pg (25.7-33.7); MCHC 35.6 g/dl (32.0-35.9); MEAN CELL VOLUME 87.4 fl (80-96); MEAN PLT VOLUME 8.6 fl (7.5-11.1); MONO % 7.9 % (3.8-10.2); NEUT % 66.9 % (42.8-82.8); PLATELET COUNT 256 K/MM3 (134-434); RBC 4.76 M/mm3 (4.00-5.60); WHITE BLOOD COUNT 7.4 K/mm3 (4.0-10.0)
[2018-08-16] MEDS ORDERED: MAG HYDROX/AL HYDROX/SIMETH 30 ML UNIT-DOSE CUP PO ONE (02:41)
[2018-08-16] MEDS ORDERED: FAMOTIDINE 20 MG/50 ML IVPB 20 MG/50 ML MG IVPB ONE ×2 (02:41→02:54)
[2018-08-16] MEDS ORDERED: ONDANSETRON 4 MG/2 ML VIAL IVPUSH ONE ×2 (02:41→06:49)
--- NOTE | 2018-08-16 02:41 | PDOC ---
History of Present Illness - General Chief Complaint: Pain, Acute Stated Complaint: ABDOMINAL PAIN,VOMITING History Source: Patient Exam Limitations: No Limitations - History of Present Illness Initial Comments: 08/16/18 02:13 62 yo M with a hx of AAA (repaired 4 years ago), HTN, and gastritis presents to the emergency department with sudden epigastric pain that occurred at 11 pm. Per the patient, the pain feels similar to his previous gastritis pain. It radiates superiorly to the neck, feels like a burning sensation. He states he ate BBQ at 7pm with rice and beans. Per the patient, he denies the following: fever, chills, SOB, chest pain, dysuria, hematuria, diarrhea, hematochezia, and leg pain/swelling. Denies headaches and lightheadedness. Pmhx: Refer to above Shx: Sternotomy 4 years ago. Appendectomy, cholecystectomy, and right hip replacement. Meds: Omeprazole, aspirin, oxybutryin Allergies: NKDA Social: Denies tobacco, alcohol, and substance abuse. Past History - Past Medical History Allergies/Adverse Reactions: Allergies Allergy/AdvReac Type Severity Reaction Status Date / Time No Known Allergies Allergy Verified 08/16/18 01:23 Home Medications: Ambulatory Orders Amlodipine/Valsartan/Hcthiazid [Exforge Hct 10-320-25 mg Tab] 1 each PO DAILY Pantoprazole Sodium 40 mg PO DAILY 02/20/17 Zolpidem Tartrate [Ambien] 10 mg PO HS PRN #0 tablet MDD 1 05/28/17 Aspirin 81 mg PO DAILY 10/24/17 Oxybutynin Chloride [Ditropan -] 15 mg PO BID 10/24/17 Oxycodone HCl/Acetaminophen [Endocet 10-325 mg Tablet] 1 each PO DAILY 10/24/17 Omeprazole 20 mg PO DAILY 08/16/18 Anemia: No Asthma: No Cancer: No Cardiac Disorders: Yes (ANEURYSM-SX 2014) CVA: No COPD: No CHF: No Dementia: No Diabetes: No GI Disorders: Yes (GERD,COLONIC POLYP,) Disorders: No HTN: Yes Hypercholesterolemia: No Liver Disease: No Seizures: No Thyroid Disease: No - Surgical History Abdominal Surgery: No Appendectomy: Yes Cardiac Surgery: Yes (AORTIC ANEURSYM REPAIRED) Cholecystectomy: Yes Lung Surgery: No Neurologic Surgery: No Orthopedic Surgery: Yes (LEFT KNEE SURGERY) - Immunization History Immunization Up to Date: No - Suicide/Smoking/Psychosocial Hx Smoking Status: Yes Smoking History: Never smoked Have you smoked in the past 12 months: No Number of Cigarettes Smoked Daily: 0 Information on smoking cessation initiated: No 'Breaking Loose' booklet given: 06/22/13 Hx Alcohol Use: No Drug/Substance Use Hx: No Substance Use Type: None Hx Substance Use Treatment: No Review of Systems - Review of Systems Able to Perform ROS?: Yes Is the patient limited Kinyarwanda proficient: No Constitutional: No: Chills, Diaphoresis, Fever, Weakness HEENTM: No: Recent change in vision, Ear Pain, Nose Pain, Throat Pain, Mouth Pain Respiratory: No: Cough, Shortness of Breath, SOB with Exertion, Hemoptysis Cardiac (ROS): No: Chest Pain, Lightheadedness, Palpitations, Syncope, Chest Tightness ABD/GI: Yes: Indigestion, Abdominal cramping. No: Constipated, Diarrhea, Nausea , Poor Appetite, Poor Fluid Intake, Rectal Bleeding, Vomiting, Tarry Stools : No: Burning, Dysuria, Hematuria, Urgency Musculoskeletal: No: Back Pain, Joint Pain, Neck Pain Integumentary: No: Dryness, Lesions, Lumps, Rash Neurological: No: Headache, Numbness, Tingling, Tremors, Ataxia, Dizziness Psychiatric: No: Stressors Endocrine: No: Unexplained Weight Gain Hematologic/Lymphatic: No: Anemia *Physical Exam - Vital Signs Last Vital Signs Temp Pulse Resp BP Pulse Ox 98.3 F 79 18 128/85 95 08/16/18 01:20 08/16/18 01:20 08/16/18 01:20 08/16/18 01:20 08/16/18 01:20 - Physical Exam General Appearance: Yes: Nourished, Appropriately Dressed, Obese. No: Apparent Distress, Intoxicated HEENT: positive: EOMI, GONZALO, Normal ENT Inspection, Normal Voice, Symmetrical, TMs Normal, Pharynx Normal, Hearing Grossly Normal. negative: Pale Conjunctivae , Scleral Icterus (R), Scleral Icterus (L), Muffled/Hoarse voice, Pharyngeal Erythema, Tonsillar Exudate, Tonsillar Erythema, Nasal Congestion, Sinus Tenderness, Excessive drooling Neck: positive: Trachea midline. negative: Tender, Lymphadenopathy (R), Lymphadenopathy (L), Tender lateral, Tender midline Respiratory/Chest: positive: Lungs Clear, Normal Breath Sounds. negative: Chest Tender, Respiratory Distress, Accessory Muscle Use Cardiovascular: positive: Regular Rhythm, Regular Rate, S1, S2. negative: Systolic Murmur Gastrointestinal/Abdominal: positive: Normal Bowel Sounds, Tender (epigastric pain), Flat, Soft Lymphatic: negative: Adenopathy Musculoskeletal: positive: Normal Inspection. negative: CVA Tenderness, Vertebral Tenderness Extremity: positive: Normal Capillary Refill, Normal Inspection, Normal Range of Motion. negative: Tender Integumentary: positive: Normal Color, Dry, Warm Neurologic: positive: vtc technician II-XII NML intact, Fully Oriented, Alert, Normal Mood/ Affect, Normal Response, Motor Strength 5/5. negative: EOM Palsy, Sensory Deficit Moderate Sedation - Procedure Monitoring Vital Signs: Procedure Monitoring Vital Signs Temperature 98.3 F 08/16/18 01:20 Pulse Rate 79 08/16/18 01:20 Respiratory Rate 18 08/16/18 01:20 Blood Pressure 128/85 08/16/18 01:20 O2 Sat by Pulse Oximetry (%) 95 08/16/18 01:20 Heart Score/ECG Review - ECG Intrepretation Comment:: 08/16/18 07:27 ventricular rate 72 bpm, MO is 162 ms, QRS is 104 ms. QTc is 400 ms. Normal sinus rhythm with LVH. no st elevations or depresisons noted on exam. ED Treatment Course - LABORATORY CBC & Chemistry Diagram: 08/16/18 02:05 08/16/18 02:05 Medical Decision Making - Medical Decision Making 62 yo M with a hx of AAA (repaired 4 years ago), HTN, and gastritis presents to the emergency department with sudden epigastric pain that occurred at 11 pm. Initial vitals: Initial Vital Signs Temp Pulse Resp BP Pulse Ox 98.3 F 79 18 128/85 95 08/16/18 01:20 08/16/18 01:20 08/16/18 01:20 08/16/18 01:20 08/16/18 01:20 Work up: ddx: acs, gerd, AAA leakage vs dissection vs enlargement (mass effecT). cbc, cmp , trops, lipase, CTA abdomen and chest Laboratory Tests 08/16/18 08/16/18 02:05 02:05 WBC 7.4 RBC 4.76 Hgb 14.8 Hct 41.6 MCV 87.4 MCH 31.1 MCHC 35.6 RDW 14.0 Plt Count 256 MPV 8.6 Absolute Neuts (auto) 5.0 Neutrophils % 66.9 Lymphocytes % 23.1 Monocytes % 7.9 Eosinophils % 1.4 Basophils % 0.7 Nucleated RBC % 0 Sodium 142 Potassium 4.1 Chloride 106 Carbon Dioxide 28 Anion Gap 8 BUN 29 H Creatinine 1.3 Creat Clearance w eGFR 56.12 Random Glucose 111 H Calcium 8.5 Total Bilirubin 0.4 AST 27 ALT 43 Alkaline Phosphatase 138 H Creatine Kinase 90 Troponin I < 0.02 Total Protein 7.1 Albumin 3.7 Lipase 165 trops negative. EKG did not show concerning findings (no st elevations or depressions). Lipase was within normal limits. rest of the labs were within normal limits. the patient was given pepcid, maalox and zofran and tylenol. had significant pain relief. A call was taken from imaging material controller with concerns for CT findings. post operative changes are noted but not possible to completely rule out aortic changes due to no prior CT available. A call was placed to Dr. Hi the thoracic surgeon material controller. Due to our limited records of not having previous scans, it is difficult to assess whether the ectasia was consistent to the surgery 4 years ago. Advised to reach out to his previous thoracic surgeon on whether these changes are new or old. 08/16/18 06:[address] out [address] Gillespie which is the patient's cardiothoracic surgeon 4 years ago. Call placed out to Dr. Jackman the fixed income analyst of the patient of 7 years. Per the fixed income analyst, he states the findings on the CT are consistent with his known post operative changes and he was recently assessed on stability of surgery 6-9 months ago. He last saw the patient 2 weeks ago in the office. He states the patient can be safely discharged to his office for follow up. He states these symptoms are consistent with his GERD when he is non compliant with his medications. Dispo: Patient will be discharged. *DC/Admit/Observation/Transfer Diagnosis at time of Disposition: GERD (gastroesophageal reflux disease) Qualifiers: Esophagitis presence: without esophagitis Qualified Code(s): K21.9 - Gastro- esophageal reflux disease without esophagitis - Discharge Dispostion Disposition: HOME Decision to Admit order: No - Referrals Referrals: Shadi Hazel MD [Primary Care Provider] - Pedrito Jackman MD [Non Staff, Medical] - - Patient Instructions Printed Discharge Instructions: DI for Gastroesophageal Reflux Disease (GERD), DI for Gastritis Additional Instructions: you were seen for the evaluation of your abdominal pain. your labs were within normal limits. we performed a CTA on your chest and abdomen and pelvis. Per your fixed income analyst's input, your findings were unchanged from your previous imaging. please follow up with your fixed income analyst, Dr. Jackman, within 24 hours after discharge for follow up care and management. His number is as follows: . Please return to the emergency department if you have worsening symptoms or new concerning symptoms such as change in quality of chest pain, shortness of breath, and pain that radiates to your back and arms. Thank you. - Post Discharge Activity
[2018-08-16 02:48] LABS: ALBUMIN 3.7 g/dl (3.4-5.0); ALK PHOS 138 U/L (45-117); ANION GAP 8 MMOL/L (8-16); BILIRUBIN,TOTAL 0.4 mg/dL (0.2-1); BLOOD UREA NITROGEN 29 mg/dL (7-18); CALCIUM 8.5 mg/dL (8.5-10.1); CHLORIDE 106 mmol/L (98-107); CO2 28 mmol/L (21-32); CREATININE 1.3 mg/dL (0.55-1.3); GLUCOSE,RANDOM 111 mg/dL (74-106); LIPASE 165 U/L (73-393); POTASSIUM 4.1 mmol/L (3.5-5.1); SGOT/AST 27 U/L (15-37); SGPT/ALT 43 U/L (13-61); SODIUM 142 mmol/L (136-145); TOT PROT 7.1 g/dl (6.4-8.2)
[2018-08-16] MEDS ORDERED: MAG HYDROX/AL HYDROX/SIMETH 30 ML UNIT-DOSE CUP ONE (02:53)
[2018-08-16] MEDS ORDERED: ONDANSETRON 4 MG/2 ML VIAL ONE (02:54)
[2018-08-16 03:55] VITALS: BMI 34.9
--- NOTE | 2018-08-16 04:23 | PDOC ---
Attending Attestation - Resident Resident Name: DonnaLopez - ED Attending Attestation I have performed the following: I have examined & evaluated the patient, The case was reviewed & discussed with the resident, I agree w/resident's findings & plan, Exceptions are as noted - HPI HPI: 08/16/18 04:21 62 yo male with h/o aaa repair, htn gerd here with co epigastric pain. pt states similar to his prior gerd. no cp no sob. no dizziness. describes as burning sensation raising up into his chest. no new numbness or tingling or weakness. no f/c no sick contacts. no mod factors. - Physicial Exam PE: 08/16/18 04:22 awake alert lungs clear heart rrr nomrg abd soft obese nondistended. mild epigastric ttp. no rebound no guarding. skin warm and dry. no edema. 2 + dp/ pt pulses bilaterally. - Medical Decision Making 08/16/18 04:22 differential acs, gerd, aaa leak. plan ct a labs lipase ua ucg. pain control gi cocktail to help gerd. reassess. Heart Score/ECG Review #1 General ECG Interpretation: Sinus Rhythm, Normal Rate (72), Normal Intervals, No acute ischemic changes (TWI I, AVL,)
[2018-08-16] MEDS ORDERED: ACETAMINOPHEN 1000 MG/100 ML VIAL (NON FORMULARY) IVPB ONE (06:49)
[2018-08-16 07:44] VITALS: BP 123/81; PULSE 69; TEMP 98
--- NOTE | 2018-08-16 09:48 | EKG ---
Test Reason : Blood Pressure : / mmHG Vent. Rate : 072 BPM Atrial Rate : 072 BPM P-R Int : 162 ms QRS Dur : 104 ms QT Int : 366 ms P-R-T Axes : 039 -29 117 degrees QTc Int : 400 ms NORMAL SINUS RHYTHM LEFT VENTRICULAR HYPERTROPHY WITH REPOLARIZATION ABNORMALITY ABNORMAL ECG WHEN COMPARED WITH ECG OF 24-OCT-2017 05:14, NO SIGNIFICANT CHANGE WAS FOUND Confirmed by CLARIBEL SUMMERS MD ([id number]) on 08/16/2018 9:48:16 AM Referred By: Confirmed By:CLARIBEL SUMMERS MD
== END 2018-08-16 07:44 | disposition home or self-care (01) ==
LOC: JER 01:09
PROC: 3E033GC Introduction of Other Therapeutic Substance into Peripheral Vein, Percutaneous Approach (ICD-10-PCS; principal; 2018-08-16)
DX: K21.9 Gastro-esophageal reflux disease without esophagitis (principal); Z72.0 Tobacco use; I10 Essential (primary) hypertension
CPT/HCPCS: 36415; 71045-TC-FY; 71275-TC; 74175-TC; 80053; 82550; 83690; 84484; 85025; 93005; 93010; 99282-25